=== PATIENT | female | born 1995 | race African-American/Black ===

== ENCOUNTER 2016-12-07 21:05 | Emergency (ER) | payer OTHER ==
[~2016-12-07 21:05] MED LIST: ACET50TA PO; COLA100C PO; IBUP-1114 PO; PRENTAB7 PO; VALT1TAB PO
[2016-12-07] MEDS ORDERED: BENZONATATE 100 MG CAP As Ordered ONE (23:33)
[2016-12-07] MEDS ORDERED: AZITHROMYCIN 250 MG TAB As Ordered ONE (23:33)
--- NOTE | 2016-12-07 23:41 | EDDOCDS ---
Physician Documentation [facility] Name: David De Age: 21 yrs Sex: Female : 1995 Arrival Date: 12/07/2016 Time: 21:05 Bed I2 / M2 Private MD: Jerome - Complete Info On Cds Disposition: 12/07/16 23:19 Discharged to Home/Self Care. Impression: Acute bronchitis, Acute pharyngitis. - Condition is Stable. - Discharge Instructions: Acute Bronchitis, Pharyngitis, Salt Water Gargle. - Prescriptions for Zithromax 250 mg Oral Tablet - take 1 tablet by ORAL route once daily start tomorrow; 4 tablet. benzonatate 200 mg Oral Capsule - take 1 capsule by ORAL route 3 times per day As needed; 30 capsule. - Medication Reconciliation, Local Pharmacy Hours form. - Follow up: Stephanie Garcia [facility]; When: Tomorrow; Reason: Recheck today's complaints, Continuance of care. - Problem is new. - Symptoms have improved. - Notes: USE MEDICATIONS INSTRUCTED, FOLLOW UP WITH YOUR DOCTOR TOMORROW, RETURN TO THE ER IF THE SYMPTOMS WORSEN OR BECOME CONCERNING Historical: - Allergies: Wellbutrin; - Home Meds: 1. none - PMHx: none; - PSHx: none; - Social history: Smoking status: Patient uses tobacco products, current every day smoker. No barriers to communication noted, The patient speaks fluent [place]. - Family history: Not pertinent. - : The pt / caregiver states he / she is not on anticoagulants. Home medication list is obtained from the patient. - Exposure Risk Screening:: None identified. 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 4 in. (162.56 cm) (R); Pain 4/10; 22:31 BP 126 / 86 RA Supine (auto/reg); Pulse 79; Resp 18; Temp 97.2; Pulse Ox 97% ; ajs 22:31 BP 124 / 84 RA Sitting (auto/reg); Pulse 74; ajs 22:31 BP 124 / 86 RA Standing (auto/reg); Pulse 91; ajs 21:08 Body Mass Index 19.74 (52.16 kg, 162.56 cm) gr2 MDM: 21:59 Obtain sample by nasopharyngeal swab ordered. ck7 21:59 Strep Screen, Nursing ordered. ck7 22:00 -Influenza A&B Rapid Antigen - Nose Ordered. EDMS 22:01 Chest, 2 View (pa\E\lat) Ordered. EDMS 22:02 Orthostatic VS ordered. ck7 22:41 GATS (NEGATIVE STREP SCREEN) Ordered. EDMS 22:48 -Influenza A&B Rapid Antigen - Nose Reviewed. ck7 23:14 Financial registration complete. pm4 23:20 Tessalon 200 mg PO once ordered. ck7 23:20 azithromycin 500 mg PO once ordered. ck7 23:26 [facility] Payment Agreement was scanned into [employer] and attached to record. pm4 Administered Medications: 23:37 Drug: Tessalon 200 mg Route: PO; af2 23:37 Drug: azithromycin 500 mg [azithromycin 250 mg tablet (2 tabs)] Route: PO; af2 Signatures: Dispatcher [employer] EDMS Leo Mock, RPA-C RPA-Cck7 Criselda HurtRN RN ms18 Kristen Allen RN RN af2 Pierce Taylor, Reg Reg pm4 The chart was reviewed and I authenticate all verbal orders and agree with the evaluation and treatment provided.Attachments: 23:26 [facility] Payment Agreement pm4 MTDD
--- NOTE | 2016-12-07 23:41 | EDDOCDS ---
Nurse's Notes [facility] Name: David De Age: 21 yrs Sex: Female : 1995 Arrival Date: 12/07/2016 Time: 21:05 Bed I2 / M2 Private MD: Other - Complete Info On Cds Diagnosis: Acute bronchitis;Acute pharyngitis Presentation: 12/07 21:14 Presenting complaint: Patient states: that she has a cough, sore throat that started ms18 yesterday. Adult Sepsis Screening: The patient does not have new or worsening altered mentation. Patient's respiratory rate is less than 22. Systolic blood pressure is greater than 100. Patient has a qSOFA score of 0- Negative Sepsis Screen. Suicide/Homicide risk assessment- the patient denies having any suicidal and/or homicidal ideations and does not present with any other emotional, behavioral or mental health complaints. 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 Transition of care: patient was not received from another setting of care. 21:14 Acuity: GUY Level 4 ms18 21:14 Method Of Arrival: Walkin/Carried/Asstd ms18 Triage Assessment: 21:16 General: Appears in no apparent distress, comfortable, Behavior is appropriate for age, ms18 cooperative. Pain: Location: throat Pain currently is 7 out of 10 on a pain scale. HIV screening NA for this visit Offered previously. Neurological: No deficits noted. Respiratory: Airway is patent Respiratory effort is even, unlabored. Derm: Skin is pink, warm & dry. 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 none - PMHx: none; - PSHx: none; - Social history: Smoking status: Patient uses tobacco products, current every day smoker. No barriers to communication noted, The patient speaks fluent Mongolian. - Family history: Not pertinent. - : The pt / caregiver states he / she is not on anticoagulants. Home medication list is obtained from the patient. - Exposure Risk Screening:: None identified. Screenin:39 Screening information is obtained from the patient. Fall risk: No risks identified. af2 Assistance ADL's: requires no assistance with activities of daily living. Abuse/DV Screen: The patient / caregiver reports he/she is: not in a situation that causes fear, pain or injury. Nutritional screening: No deficits noted. Advance Directives: Currently, there is no health care proxy. home support is adequate. Assessment: 22:30 General: Appears in no apparent distress, Behavior is cooperative. Neurological: No af2 deficits noted. Respiratory: Airway is patent Respiratory effort is even, unlabored. Derm: No deficits noted. 23:39 General: Appears in no apparent distress, Behavior is cooperative. Neurological: No af2 deficits noted. Respiratory: Airway is patent Respiratory effort is even, unlabored. Derm: No deficits noted. Vital Signs: 21:08 BP 129 / 91; Pulse 92; Resp 18 S; Temp 96.2(O); Pulse Ox 100% on R/A; Weight 52.16 kg gr2 (R); Height 5 ft. 4 in. (162.56 cm) (R); Pain 4/10; 22:31 BP 126 / 86 RA Supine (auto/reg); Pulse 79; Resp 18; Temp 97.2; Pulse Ox 97% ; ajs 22:31 BP 124 / 84 RA Sitting (auto/reg); Pulse 74; ajs 22:31 BP 124 / 86 RA Standing (auto/reg); Pulse 91; ajs 21:08 Body Mass Index 19.74 (52.16 kg, 162.56 cm) gr2 Vitals: 21:08 Log In Time: December 07, 2016 at 21:08. gr2 22:40 Strep Screen is obtained and tested: Negative, a GATSNEG culture is ordered in [facility] and sent. ED Course: 21:07 Patient visited by Mel Weldon. gr2 21:07 Patient moved to Waiting gr2 21:08 Other - Complete Info On Cds is Private Physician. gr2 21:10 Patient visited by Mel Weldon. gr2 21:10 Patient moved to Pre RCE gr2 21:15 Triage Initiated ms18 21:40 Patient moved to Triage 3 ms18 21:50 Leo Mock [facility]C [facility] ck7 21:50 Julio Cesar Epstein DO is Attending Physician. ck7 21:50 Patient visited by Leo Mock RPA-C. ck7 22:14 Patient moved to / [facility] 22:31 Patient visited by Leo Mock RPA-C. ck7 22:32 Patient visited by Cristina Ellis. kendall 23:07 Patient visited by Leo Mock RPA-C. ck7 23:18 Stephanie Garcia [facility] is Referral Physician. ck7 23:19 Patient name changed from David\S\\S\De\S\ to David\S\Brandee\S\De. EDMS 23:26 [facility] [place] Agreement was scanned into [employer] and attached to record. pm4 23:39 The patient / caregiver is instructed regarding the plan of care and ED course. af2 23:39 No IV's were initiated during this patient's visit. No procedures done that require af2 assistance. Administered Medications: 23:37 Drug: Tessalon 200 mg Route: PO; af2 23:37 Drug: azithromycin 500 mg [azithromycin 250 mg tablet (2 tabs)] Route: PO; af2 Order Results: Lab Order: -Influenza A&B Rapid Antigen - Nose; SPEC'M 12/07/16 22:18 Test: INFLUENZA A RAPID SCR by ICA; Value: INFLUENZA A RESULTS NEGATIVE; Status: F Test: INFLUENZA A RAPID SCR by ICA; Value: Comments:; Status: F Test: INFLUENZA B RAPID SCR by ICA; Value: INFLUENZA B RESULTS NEGATIVE; Status: F Test Note: ; The Influenza test is a direct rapid immunoassay for the qualitative detection of Influenza viral antigen. Cell culture (Viral Culture) testing should be considered to confirm NEGATIVE results and to assist in detecting other viruses that can provide similar clinical symptoms. Please contact the lab within 24 hours ([phone]) if confirmatory testing is desired. Outcome: 23:19 Discharge ordered by Provider. ck7 23:39 Discharge Assessment: Patient awake, alert and oriented x 3. No cognitive and/or af2 functional deficits noted. Patient verbalized understanding of disposition instructions. patient administered narcotics - no. The following High Risk Discharge criteria are identified: None. Discharged to home ambulatory. Condition: stable. Discharge instructions given to patient, Instructed on discharge instructions, follow up and referral plans. medication usage, Demonstrated understanding of instructions, medications, Pt was receptive of discharge instructions/ teaching. No special radiology studies were completed. Property :Personal belongings accompany Pt. 23:40 Patient left the ED. af2 Signatures: Dispatcher [employer] EDTN Cristina Ellis Christopher, RPA-C RPA-Cck7 Mel Weldon gr2 Gal Kowalski,RN RN yanab Criselda HurtRN RN ms18 Kristen AllenRN RN af2 Pierce Taylor, Reg Reg pm4 NELDAD
--- NOTE | 2016-12-08 07:55 | REP ---
Clinical: Acute cough . Comparison: 05/28/2016 . Technique: PA and lateral. Findings: The mediastinum and cardiac silhouette are normal. The lung fernandez are clear and without acute consolidation, effusion, or pneumothorax. The skeletal structures are intact and normal. Impression: 1. No acute cardiopulmonary process. Signed by Jorge Umanzor MD 12/08/2016 07:46 A
--- NOTE | 2016-12-10 00:42 | EDDOCDS ---
Physician Documentation Name: David De Age: 21 yrs Sex: Female : 1995 Arrival Date: 12/07/2016 Time: 21:05 Bed I2 / M2 Private MD: Jerome - Complete Info On Cds Disposition: 12/07/16 23:19 Discharged to Home/Self Care. Impression: Acute bronchitis, Acute pharyngitis. - Condition is Stable. - Discharge Instructions: Acute Bronchitis, Pharyngitis, Salt Water Gargle. - Prescriptions for Zithromax 250 mg Oral Tablet - take 1 tablet by ORAL route once daily start tomorrow; 4 tablet. benzonatate 200 mg Oral Capsule - take 1 capsule by ORAL route 3 times per day As needed; 30 capsule. - Medication Reconciliation, Local Pharmacy Hours form. - Follow up: Stephanie Garcia [facility]; When: Tomorrow; Reason: Recheck today's complaints, Continuance of care. - Problem is new. - Symptoms have improved. - Notes: USE MEDICATIONS INSTRUCTED, FOLLOW UP WITH YOUR DOCTOR TOMORROW, RETURN TO THE ER IF THE SYMPTOMS WORSEN OR BECOME CONCERNING Historical: - Allergies: Wellbutrin; - Home Meds: 1. none - PMHx: none; - PSHx: none; - Social history: Smoking status: Patient uses tobacco products, current every day smoker. No barriers to communication noted, The patient speaks fluent Kiswahili. - Family history: Not pertinent. - : The pt / caregiver states he / she is not on anticoagulants. Home medication list is obtained from the patient. - Exposure Risk Screening:: None identified. 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 4 in. (162.56 cm) (R); Pain 4/10; 22:31 BP 126 / 86 RA Supine (auto/reg); Pulse 79; Resp 18; Temp 97.2; Pulse Ox 97% ; ajs 22:31 BP 124 / 84 RA Sitting (auto/reg); Pulse 74; ajs 22:31 BP 124 / 86 RA Standing (auto/reg); Pulse 91; ajs 21:08 Body Mass Index 19.74 (52.16 kg, 162.56 cm) gr2 MDM: 21:59 Obtain sample by nasopharyngeal swab ordered. ck7 21:59 Strep Screen, Nursing ordered. ck7 22:00 -Influenza A&B Rapid Antigen - Nose Ordered. EDMS 22:01 Chest, 2 View (pa\E\lat) Ordered. EDMS 22:02 Orthostatic VS ordered. ck7 22:41 GATS (NEGATIVE STREP SCREEN) Ordered. EDMS 22:48 -Influenza A&B Rapid Antigen - Nose Reviewed. ck7 23:14 Financial registration complete. pm4 23:20 Tessalon 200 mg PO once ordered. ck7 23:20 azithromycin 500 mg PO once ordered. ck7 23:26 [facility] Payment Agreement was scanned into [employer] and attached to record. pm4 12/08 12:06 T-Sheet-- Draft Copy was scanned into [employer] and attached to record. gb Administered Medications: 12/07 23:37 Drug: Tessalon 200 mg Route: PO; af2 23:37 Drug: azithromycin 500 mg [azithromycin 250 mg tablet (2 tabs)] Route: PO; af2 Signatures: Dispatcher [employer] EDMS Antonina Goncalves, Reg Reg gb Leo Mock RPA-C RPA-Cck7 Criselda Hurt,RN RN ms18 Kristen AllenRN RN af2 Pierce Taylor, Reg Reg pm4 The chart was reviewed and I authenticate all verbal orders and agree with the evaluation and treatment provided.Attachments: 23:26 [facility] Payment Agreement pm4 12/08 12:06 T-Sheet-- Draft Copy gb Chart Complete MTDD
--- NOTE | 2016-12-10 00:42 | EDDOCDS ---
Physician Documentation [facility] Name: David De Age: 21 yrs Sex: Female : 1995 Arrival Date: 12/07/2016 Time: 21:05 Bed I2 / M2 Private MD: Jerome - Complete Info On Cds Disposition: 12/07/16 23:19 Discharged to Home/Self Care. Impression: Acute bronchitis, Acute pharyngitis. - Condition is Stable. - Discharge Instructions: Acute Bronchitis, Pharyngitis, Salt Water Gargle. - Prescriptions for Zithromax 250 mg Oral Tablet - take 1 tablet by ORAL route once daily start tomorrow; 4 tablet. benzonatate 200 mg Oral Capsule - take 1 capsule by ORAL route 3 times per day As needed; 30 capsule. - Medication Reconciliation, Local Pharmacy Hours form. - Follow up: Stephanie Garcia [facility]; When: Tomorrow; Reason: Recheck today's complaints, Continuance of care. - Problem is new. - Symptoms have improved. - Notes: USE MEDICATIONS INSTRUCTED, FOLLOW UP WITH YOUR DOCTOR TOMORROW, RETURN TO THE ER IF THE SYMPTOMS WORSEN OR BECOME CONCERNING Historical: - Allergies: Wellbutrin; - Home Meds: 1. none - PMHx: none; - PSHx: none; - Social history: Smoking status: Patient uses tobacco products, current every day smoker. No barriers to communication noted, The patient speaks fluent Vietnamese. - Family history: Not pertinent. - : The pt / caregiver states he / she is not on anticoagulants. Home medication list is obtained from the patient. - Exposure Risk Screening:: None identified. 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 4 in. (162.56 cm) (R); Pain 4/10; 22:31 BP 126 / 86 RA Supine (auto/reg); Pulse 79; Resp 18; Temp 97.2; Pulse Ox 97% ; ajs 22:31 BP 124 / 84 RA Sitting (auto/reg); Pulse 74; ajs 22:31 BP 124 / 86 RA Standing (auto/reg); Pulse 91; ajs 21:08 Body Mass Index 19.74 (52.16 kg, 162.56 cm) gr2 MDM: 21:59 Obtain sample by nasopharyngeal swab ordered. ck7 21:59 Strep Screen, Nursing ordered. ck7 22:00 -Influenza A&B Rapid Antigen - Nose Ordered. EDMS 22:01 Chest, 2 View (pa\E\lat) Ordered. EDMS 22:02 Orthostatic VS ordered. ck7 22:41 GATS (NEGATIVE STREP SCREEN) Ordered. EDMS 22:48 -Influenza A&B Rapid Antigen - Nose Reviewed. ck7 23:14 Financial registration complete. pm4 23:20 Tessalon 200 mg PO once ordered. ck7 23:20 azithromycin 500 mg PO once ordered. ck7 23:26 [facility] Payment Agreement was scanned into [employer] and attached to record. pm4 12/08 12:06 T-Sheet-- Draft Copy was scanned into [employer] and attached to record. gb Administered Medications: 12/07 23:37 Drug: Tessalon 200 mg Route: PO; af2 23:37 Drug: azithromycin 500 mg [azithromycin 250 mg tablet (2 tabs)] Route: PO; af2 Signatures: Dispatcher [employer] EDMS Antonina Goncalves, Reg Reg gb Leo Mock RPA-C RPA-Cck7 Criselda Hurt,RN RN ms18 Kristen AllenRN RN af2 Pierce Taylor, Reg Reg pm4 The chart was reviewed and I authenticate all verbal orders and agree with the evaluation and treatment provided.Attachments: 23:26 [facility] Payment Agreement pm4 12/08 12:06 T-Sheet-- Draft Copy gb Chart Complete MTDD
--- NOTE | 2016-12-10 00:42 | EDDOCDS ---
Nurse's Notes [facility] Name: David De Age: 21 yrs Sex: Female : 1995 Arrival Date: 12/07/2016 Time: 21:05 Bed I2 / M2 Private MD: Other - Complete Info On Cds Diagnosis: Acute bronchitis;Acute pharyngitis Presentation: 12/07 21:14 Presenting complaint: Patient states: that she has a cough, sore throat that started ms18 yesterday. Adult Sepsis Screening: The patient does not have new or worsening altered mentation. Patient's respiratory rate is less than 22. Systolic blood pressure is greater than 100. Patient has a qSOFA score of 0- Negative Sepsis Screen. Suicide/Homicide risk assessment- the patient denies having any suicidal and/or homicidal ideations and does not present with any other emotional, behavioral or mental health complaints. 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 Transition of care: patient was not received from another setting of care. 21:14 Acuity: GUY Level 4 ms18 21:14 Method Of Arrival: Walkin/Carried/Asstd ms18 Triage Assessment: 21:16 General: Appears in no apparent distress, comfortable, Behavior is appropriate for age, ms18 cooperative. Pain: Location: throat Pain currently is 7 out of 10 on a pain scale. HIV screening NA for this visit Offered previously. Neurological: No deficits noted. Respiratory: Airway is patent Respiratory effort is even, unlabored. Derm: Skin is pink, warm & dry. 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 none - PMHx: none; - PSHx: none; - Social history: Smoking status: Patient uses tobacco products, current every day smoker. No barriers to communication noted, The patient speaks fluent Spanish. - Family history: Not pertinent. - : The pt / caregiver states he / she is not on anticoagulants. Home medication list is obtained from the patient. - Exposure Risk Screening:: None identified. Screenin:39 Screening information is obtained from the patient. Fall risk: No risks identified. af2 Assistance ADL's: requires no assistance with activities of daily living. Abuse/DV Screen: The patient / caregiver reports he/she is: not in a situation that causes fear, pain or injury. Nutritional screening: No deficits noted. Advance Directives: Currently, there is no health care proxy. home support is adequate. Assessment: 22:30 General: Appears in no apparent distress, Behavior is cooperative. Neurological: No af2 deficits noted. Respiratory: Airway is patent Respiratory effort is even, unlabored. Derm: No deficits noted. 23:39 General: Appears in no apparent distress, Behavior is cooperative. Neurological: No af2 deficits noted. Respiratory: Airway is patent Respiratory effort is even, unlabored. Derm: No deficits noted. Vital Signs: 21:08 BP 129 / 91; Pulse 92; Resp 18 S; Temp 96.2(O); Pulse Ox 100% on R/A; Weight 52.16 kg gr2 (R); Height 5 ft. 4 in. (162.56 cm) (R); Pain 4/10; 22:31 BP 126 / 86 RA Supine (auto/reg); Pulse 79; Resp 18; Temp 97.2; Pulse Ox 97% ; ajs 22:31 BP 124 / 84 RA Sitting (auto/reg); Pulse 74; ajs 22:31 BP 124 / 86 RA Standing (auto/reg); Pulse 91; ajs 21:08 Body Mass Index 19.74 (52.16 kg, 162.56 cm) gr2 Vitals: 21:08 Log In Time: December 07, 2016 at 21:08. gr2 22:40 Strep Screen is obtained and tested: Negative, a GATSNEG culture is ordered in [facility] and sent. ED Course: 21:07 Patient visited by Mel Weldon. gr2 21:07 Patient moved to Waiting gr2 21:08 Other - Complete Info On Cds is Private Physician. gr2 21:10 Patient visited by Mel Weldon. gr2 21:10 Patient moved to Pre RCE gr2 21:15 Triage Initiated ms18 21:40 Patient moved to Triage 3 ms18 21:50 [facility] ck[facility] 21:50 Julio Cesar Epstein DO is Attending Physician. ck7 21:50 Patient visited by Leo Mock RPA-C. ck7 22:14 Patient moved to / [facility] 22:31 Patient visited by Leo Mock RPA-C. ck7 22:32 Patient visited by Cristina Ellis. ajs 23:07 Patient visited by Leo Mock RPA-C. ck7 23:18 Stephanie Garcia [facility] is Referral Physician. ck7 23:19 Patient name changed from David\S\\S\De\S\ to David\S\Brandee\S\De. EDMS 23:26 [facility] Payment Agreement was scanned into [employer] and attached to record. pm4 23:39 The patient / caregiver is instructed regarding the plan of care and ED course. af2 23:39 No IV's were initiated during this patient's visit. No procedures done that require af2 assistance. 12/08 07:56 Chest, 2 View (pa\E\lat) Returned. EDMS 12:06 T-Sheet-- Draft Copy was scanned into [employer] and attached to record. gb Administered Medications: 12/07 23:37 Drug: Tessalon 200 mg Route: PO; af2 23:37 Drug: azithromycin 500 mg [azithromycin 250 mg tablet (2 tabs)] Route: PO; af2 Order Results: Lab Order: -Influenza A&B Rapid Antigen - Nose; SPEC'M 12/07/16 22:18 Test: INFLUENZA A RAPID SCR by ICA; Value: INFLUENZA A RESULTS NEGATIVE; Status: F Test: INFLUENZA A RAPID SCR by ICA; Value: Comments:; Status: F Test: INFLUENZA B RAPID SCR by ICA; Value: INFLUENZA B RESULTS NEGATIVE; Status: F Test Note: ; The Influenza test is a direct rapid immunoassay for the qualitative detection of Influenza viral antigen. Cell culture (Viral Culture) testing should be considered to confirm NEGATIVE results and to assist in detecting other viruses that can provide similar clinical symptoms. Please contact the lab within 24 hours ([phone]) if confirmatory testing is desired. Lab Order: GATS (NEGATIVE STREP SCREEN); SPEC'M 12/07/16 22:18 Test: GATS CULTURE (NEG STREP SCR); Value: GATS RESULT NEGATIVE FOR STREP PYOGENES (GROUP A); Status: F Test: GATS CULTURE (NEG STREP SCR); Value: <EXTERNAL COMMENT eCWMed> FULL REPORT IN LAB NOTES (eCW and Medent).; Status: F Radiology Order: Chest, 2 View (pa\E\lat) Test: Chest, 2 View (pa\E\lat) REASON FOR EXAMINATION: Cough; Clinical: Acute cough .; ; Comparison: 05/28/2016 .; ; Technique: PA and lateral.; ; Findings:; The mediastinum and cardiac silhouette are normal. The lung fernandez are clear and; without acute consolidation, effusion, or pneumothorax. The skeletal structures; are intact and normal.; ; Impression:; 1. No acute cardiopulmonary process.; ; ; Signed by; Jorge Umanzor MD 12/08/2016 07:46 A; Outcome: 23:19 Discharge ordered by Provider. ck7 23:39 Discharge Assessment: Patient awake, alert and oriented x 3. No cognitive and/or af2 functional deficits noted. Patient verbalized understanding of disposition instructions. patient administered narcotics - no. The following High Risk Discharge criteria are identified: None. Discharged to home ambulatory. Condition: stable. Discharge instructions given to patient, Instructed on discharge instructions, follow up and referral plans. medication usage, Demonstrated understanding of instructions, medications, Pt was receptive of discharge instructions/ teaching. No special radiology studies were completed. Property :Personal belongings accompany Pt. 23:40 Patient left the ED. af2 Signatures: Dispatcher [employer] EDMS Antonina Goncalves, Reg Reg gb Caleb, Leo Gunderson, RPA-C RPA-Cck7 Mel Weldon gr2 Gal Kowalski,RN Criselda Nelson RN RN ms18 Kristen AllenRN RN af2 Pirece Taylor, Reg Reg pm4 Chart Complete MTDD
== END 2016-12-07 23:40 | disposition home or self-care (01) ==
LOC: M ED 21:05
DX: J20.9 Acute bronchitis, unspecified (principal); J02.9 Acute pharyngitis, unspecified; Z72.0 Tobacco use; Z88.8 Allergy status to other drugs, medicaments and biological substances

== ENCOUNTER 2016-12-22 23:18 | Emergency (ER) | payer OTHER ==
[~2016-12-22] VITALS: Ht 162.6 cm; Wt 51.3 kg
[2016-12-23] MEDS ORDERED: KETOROLAC 30 MG/ML VIAL (J1885) IV ONE (04:45)
[2016-12-23] MEDS ORDERED: diphenhydrAMINE INJ 50MG/ML VIAL (J1200) IV ONE (04:45)
[2016-12-23] MEDS ORDERED: METOCLOPRAMIDE INJ 10MG/2ML VIAL (J2765) IV ONE (04:45)
[2016-12-23] MEDS ORDERED: NS 1,000 ML IV ONE (04:45)
[2016-12-23 07:24] VITALS: BP 114/72
== END 2016-12-23 07:27 | disposition home or self-care (01) ==
LOC: M ED 12-23 00:41
DX: G43.909 Migraine, unspecified, not intractable, without status migrainosus (principal); Z88.8 Allergy status to other drugs, medicaments and biological substances; Z79.899 Other long term (current) drug therapy
CPT/HCPCS: 96361; 96374; 96375; 99282; J1200; J1885; J2765

== ENCOUNTER 2017-01-19 01:23 | Emergency (ER) | payer OTHER ==
[~2017-01-19] VITALS: Ht 162.6 cm; Wt 49.9 kg
[2017-01-19] MEDS ORDERED: PERCOCET 5MG/325MG TAB PO ONE ×2 (07:15→07:30)
[2017-01-19] MEDS ORDERED: ONDANSETRON 4 MG ORAL DISINTEGRATING TAB (S0181) PO ONE (07:15)
[2017-01-19 08:28] LABS: CONTROL LINE HCG INT CTR LINE PRESENT
--- NOTE | 2017-01-19 09:07 | REP ---
Clinical: Pelvic pain. IUD placement. Technique: Transabdominal pelvic ultrasound followed by transvaginal examination for better evaluation of the endometrium and adnexa with color Doppler evaluation of the ovaries. Findings: Bladder is unremarkable and measures 4.9 x 3.1 x 2.4 cm. Normal anteverted uterus measures 8.5 x 3.7 x 5.5 cm. The endometrial complex measures 2 mm thickness. No discrete uterine or endometrial abnormalities are appreciated. IUD identified within the endometrial canal extending to the fundus Bilateral ovaries are normal in appearance and vascularity without evidence for torsion. Right ovary measures 4.1 x 1.9 x 2.7 cm ; R I = 0.45 . Left ovary measures 3.3 x 2.1 x 2.7 cm ; R I = 0.57 . No free fluid or adnexal mass lesions. Impression: 1. Normal pelvic ultrasound. 2. IUD in satisfactory position. 3. Normal ovaries without torsion. Signed by Jorge Umanzor MD 01/19/2017 08:58 A
[2017-01-19] MEDS ORDERED: FLAG500T PO (09:13)
[2017-01-19] MEDS ORDERED: metroNIDAZOLE (FLAGYL) 500 MG TAB PO ONE (09:15)
[2017-01-19 09:19] VITALS: BP 135/80
== END 2017-01-19 09:31 | disposition home or self-care (01) ==
LOC: M ED 02:58
DX: N76.0 Acute vaginitis (principal)

== ENCOUNTER 2017-02-07 23:20 | Emergency (ER) | payer OTHER ==
[~2017-02-07] VITALS: Ht 162.6 cm; Wt 49.9 kg
[~2017-02-07 23:20] MED LIST changes: -COLA100C PO; +COLA100C3 PO; +FLAG500T PO
[2017-02-08 01:38] VITALS: BP 116/73
[2017-02-08] MEDS ORDERED: ONDANSETRON 4 MG ORAL DISINTEGRATING TAB (S0181) PO ONE (01:45)
[2017-02-08] MEDS ORDERED: KETOROLAC 60 MG/2 ML VIAL (J1885) IM ONE (01:45)
== END 2017-02-08 02:05 | disposition home or self-care (01) ==
LOC: M ED 02-08 00:10
DX: F43.0 Acute stress reaction (principal); G43.909 Migraine, unspecified, not intractable, without status migrainosus; F33.9 Major depressive disorder, recurrent, unspecified; Z88.8 Allergy status to other drugs, medicaments and biological substances
CPT/HCPCS: 96372; 99284; J1885

== ENCOUNTER → 2017-02-20 | Outpatient (REF) | payer OTHER ==
[~2017-02-20] MED LIST changes: +AUGM875T27 PO; +FLUC150T; +REGL10TA6 PO; +VIST50CA PO
== END ==
LOC: M SFHCLERA 17:30
PROVIDERS: ATTEND Nurse Practitioner Family
DX: N89.8 Other specified noninflammatory disorders of vagina (principal)

== ENCOUNTER 2017-02-21 10:56 | Emergency (ER) | payer OTHER ==
[~2017-02-21] VITALS: Ht 162.6 cm; Wt 50.8 kg
[~2017-02-21 10:56] MED LIST changes: -AUGM875T27 PO; -FLUC150T; -REGL10TA6 PO; -VIST50CA PO
[2017-02-21] MEDS ORDERED: FLUC150T (11:06)
[2017-02-21] MEDS ORDERED: AUGM875T27 PO (11:35)
[2017-02-21] MEDS ORDERED: REGL10TA6 PO (11:35)
[2017-02-21] MEDS ORDERED: VIST50CA PO (11:35)
[2017-02-21] MEDS ORDERED: KETOROLAC 30 MG/ML VIAL (J1885) IV ONE (11:45)
[2017-02-21] MEDS ORDERED: AUGMENTIN 875 MG TAB PO ONE (11:45)
[2017-02-21] MEDS ORDERED: hydrOXYzine 25 MG TAB PO ONE (11:45)
[2017-02-21] MEDS ORDERED: METOCLOPRAMIDE INJ 10MG/2ML VIAL (J2765) IV ONE (11:45)
[2017-02-21 12:40] VITALS: BP 116/75
== END 2017-02-21 12:52 | disposition home or self-care (01) ==
LOC: M ED 11:48
DX: J01.90 Acute sinusitis, unspecified (principal); F41.9 Anxiety disorder, unspecified; B00.9 Herpesviral infection, unspecified; Z79.899 Other long term (current) drug therapy; Z88.8 Allergy status to other drugs, medicaments and biological substances; F17.210 Nicotine dependence, cigarettes, uncomplicated
CPT/HCPCS: 96374; 96375; 99282; J1885; J2765

== ENCOUNTER 2017-05-18 21:49 | Emergency (ER) | payer OTHER ==
[~2017-05-18] VITALS: Ht 162.6 cm; Wt 51.0 kg
[~2017-05-18 21:49] MED LIST changes: +AUGM875T28 PO; -COLA100C3 PO; +COLA100C5 PO; +FLUC150T; +REGL10TA6 PO; +VIST50CA PO
[2017-05-18] MEDS ORDERED: PRENTAB7 PO (21:59)
[2017-05-18] MEDS ORDERED: ACETAMINOPHEN 325 MG TAB PO ONE (23:15)
--- NOTE | 2017-05-18 23:50 | REPUSA ---
Clinical history: cramping. Findings: Real-time transabdominal ultrasound images of the pelvis were obtained. There is a single i ntrauterine gestation. The crown rump length measures 1.1 cm. heart rate measures 157 beats per minute. There is a small complex fluid collection adjacent to the gestational sac, measuring 2.4 x 0 .9 x 1.8 cm. The uterus uterus and ovaries appear grossly unremarkable. There is no evidence of free fluid. Impression: 1. Single live intrauterine measuring 7 weeks 1 day, with estimated due date of 01/03/2018. 2. Small subchorionic hemorrhage.
[2017-05-19] VITALS: BP 102/63
== END 2017-05-19 00:11 | disposition home or self-care (01) ==
LOC: M ED 21:49
DX: O26.891 Other specified pregnancy related conditions, first trimester (principal); R51 Headache; Z3A.01 Less than 8 weeks gestation of pregnancy; O99.331 Smoking (tobacco) complicating pregnancy, first trimester; F17.210 Nicotine dependence, cigarettes, uncomplicated

== ENCOUNTER 2017-06-01 11:07 | Emergency (ER) | payer OTHER ==
[~2017-06-01] VITALS: Ht 162.6 cm; Wt 50.2 kg
[2017-06-01 11:07] VITALS: BP 120/72
[2017-06-01] MEDS ORDERED: VITAMIN (11:14)
[2017-06-01] MEDS ORDERED: UNIS25TA2 (11:14)
[2017-06-01] MEDS ORDERED: KETOROLAC 30 MG/ML VIAL (J1885) IV ONE (11:45)
[2017-06-01] MEDS ORDERED: diphenhydrAMINE INJ 50MG/ML VIAL (J1200) IV ONE (11:45)
[2017-06-01] MEDS ORDERED: METOCLOPRAMIDE INJ 10MG/2ML VIAL (J2765) IV ONE (11:45)
== END 2017-06-01 12:34 | disposition home or self-care (01) ==
LOC: M ED 11:07
DX: G43.909 Migraine, unspecified, not intractable, without status migrainosus (principal); B00.9 Herpesviral infection, unspecified; F33.9 Major depressive disorder, recurrent, unspecified; F41.9 Anxiety disorder, unspecified; F17.210 Nicotine dependence, cigarettes, uncomplicated; Z88.8 Allergy status to other drugs, medicaments and biological substances
CPT/HCPCS: 96374; 96375; 99283; J1200; J2765

== ENCOUNTER 2017-07-09 23:09 | Inpatient (IN) | payer OTHER ==
[~2017-07-09] VITALS: Ht 162.6 cm; Wt 51.7 kg
[~2017-07-09 23:09] MED LIST changes: +UNIS25TA2; +VITAMIN
[2017-07-09] MEDS ORDERED: VITAMIN (23:17)
[2017-07-10 01:29] LABS: CONTROL LINE HCG INT CTR LINE PRESENT
[2017-07-10 01:30] LABS: MEAN CORPUSCULAR HEMOGLOBIN 31.1 pg (27.0-33.0); RED CELL DISTRIBUTION WIDTH 12.1 % (11.5-14.5); WHITE BLOOD COUNT 7.8 K/mm3 (4.0-10.0)
[2017-07-10 01:50] LABS: ALBUMIN 3.1 GM/DL (3.2-5.2); ALBUMIN/GLOBULIN RATIO 0.94 (1.00-1.93); ALKALINE PHOSPHATASE 45 U/L (45-117); ALT/SGPT 14 U/L (12-78); ANION GAP 7 MEQ/L (8-16); AST/SGOT 9 U/L (15-37); BILIRUBIN,DIRECT < 0.1 MG/DL (0.0-0.2); BILIRUBIN,TOTAL 0.3 MG/DL (0.2-1.0); BLOOD UREA NITROGEN 15 MG/DL (7-18); CALCIUM LEVEL 8.1 MG/DL (8.5-10.1); CARBON DIOXIDE LEVEL 24 MEQ/L (21-32); CHLORIDE LEVEL 107 MEQ/L (98-107); CREATININE FOR GFR 0.61 MG/DL (0.55-1.02); GLOMERULAR FILTRATION RATE > 60.0 (>60); GLUCOSE, FASTING 70 MG/DL (70-105); SODIUM LEVEL 138 MEQ/L (136-145); TOTAL PROTEIN 6.4 GM/DL (6.4-8.2)
[2017-07-10] MEDS ORDERED: PRENCHW PO (06:12)
[2017-07-10 06:30] LABS: METHADONE URINE NEGATIVE (NEGATIVE)
[2017-07-10 07:54] VITALS: BP 119/58
[2017-07-10] MEDS ORDERED: MOM 30ML SUSPENSION UDC PO PRN (08:45)
[2017-07-10] MEDS ORDERED: hydrOXYzine 50 MG TAB PO PRN (08:45)
[2017-07-10] MEDS ORDERED: MAALOX 30 ML SUSP *UDC PO PRN (08:45)
[2017-07-10] MEDS ORDERED: ACETAMINOPHEN TAB 650MG DOSE (2X325MG) PO PRN (08:45)
--- NOTE | 2017-07-10 09:51 | HPEPDOC ---
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 Yomi Block HPI: 22yoF admitted to [facility] for unspecified depressive disorder, being medically examined today. The patient is currently 15 weeks . Remains on vitamin. Follows with Stephanie Garcia HOT METAL MIXER OPERATOR. Next appointment is scheduled 07/20/17. Patient states she has been eating and drinking well. She eats several small meals throughout the day. She states she has had some abdominal cramping which began last week. She denies any bleeding or vaginal discharge. She denies any urinary complaints, no dysuria, frequency, urgency or hematuria. Denies any fevers, chills, weakness, fatigue, UMANA, CP, SOB, cough, palpitations, abdominal pain, N/V/D or changes in bowel or bladder habits. 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 ROS: As noted in HPI, otherwise 11pt ROS of systems reviewed and remarkable only for LMP 03/26/17. Currently 15 weeks . PE: GEN: 22 yo F, appears stated age. Well-nourished, well developed. No acute distress. Alert and oriented x 3. Avoids eye contact, short 1-2 word answers. HEENT: Normocephalic, atraumatic. Pupils are equal, round, and reactive to light. Extraocular movements are intact. No nystagmus appreciated. Sclera are nonicteric. Conjunctiva without injection. Nose midline. Nasal turbinates without bogginess. EACs both patent BL. TMs both visualized and galicia with good cone of light, no bulging or erythema. No facial asymmetry. Moist mucous membranes. Dentition fair. Pharynx pink and moist, no cobblestoning. Neck supple , trachea midline. No lymphadenopathy or thyromegaly appreciated. CHEST: Regular rate and rhythm, +S1, +S2 LUNGS: Clear to auscultation bilaterally. No wheezes, rales, or rhonchi. Breathing appears symmetric and easy. Patient is speaking in full sentences. No accessory muscle use. ABD: Round, soft, mild diffuse tenderness with palpation across mid and upper abdomen, no suprapubic tenderness, non-distended. +Bowel sounds throughout. No rebound or guarding. No costovertebral angle tenderness. EXT: Pulses 2+ bilaterally dorsalis pedis and radial. No lower extremity edema appreciated. SKIN: Spangle, dry, warm. Capillary refill <2sec. No rashes. NEURO: Alert and oriented x 3. Cranial nerves III-XII are intact. No focal deficits appreciated. EKG: Pending OB U/S 05/18/17 1. Single live intrauterine measuring 7 weeks 1 day, with estimated due date of 01/03/2018. 2. Small subchorionic hemorrhage. A&P: 22yoF admitted to [facility] for unspecified depressive disorder 1. Psych. Plan per Psychiatry. Obtain baseline EKG to assure the safety of psychiatric medications as they can prolong the QT interval. 2. Nicotine dependence. Patch available. 3. . Continue outpatient follow-up with Stephanie Garcia HOT METAL MIXER OPERATOR, next appointment scheduled 07/20/17. Continue vitamin. Update OB ultrasound as the patient is reporting some abdominal cramping. Check UA/urine culture. 4. Follow up with PCP on discharge. 5. History of migraine headache. Continue Tylenol 650 mg every 6 hours as needed. Staff member Erin present throughout exam. Vital Signs Vital Signs Date Time Temp Pulse Resp B/P (MAP) Pulse Ox O2 Delivery O2 Flow Rate FiO2 07/10/17 07:54 98.6 89 20 119/58 (78) Room Air 07/10/17 07:39 99 Laboratory Data Labs 24H Laboratory Tests 2 07/10/17 01:01: Anion Gap 7L, Glomerular Filtration Rate > 60.0, Calcium Level 8.1L, Aspartate Amino Transf (AST/SGOT) 9L, Alanine Aminotransferase (ALT/SGPT) 14, Alkaline Phosphatase 45, Total Bilirubin 0.3, Direct Bilirubin < 0.1, Total Protein 6.4, Albumin 3.1L, Albumin/Globulin Ratio 0.94L, Thyroid Stimulating Hormone (TSH) 0.937, Human Chorionic Gonadotropin, Qual POSITIVEA, Salicylates Level < 1.7L, Acetaminophen Level < 2.0L, Ethyl Alcohol Level < 0.003 07/10/17 05:58: Urine Amphetamines Screen NEGATIVE, Urine Benzodiazepines Screen NEGATIVE, Urine Opiates Screen NEGATIVE, Urine Methadone Screen NEGATIVE, Urine Barbiturates Screen NEGATIVE, Urine Phencyclidine Screen NEGATIVE, Urine Cocaine Metabolite Screen NEGATIVE, Urine Cannabinoids Screen NEGATIVE CBC/BMP Laboratory Tests 07/10/17 01:01 Red Blood Count 3.41 L, Mean Corpuscular Volume 89.0, Mean Corpuscular Hemoglobin 31.1, Mean Corpuscular Hemoglobin Concent 35.0, Red Cell Distribution Width 12.1 Home Medications Scheduled Multivitamins/ ( 19) 1 Chw Chw, 1 CHW PO DAILY Allergies Coded Allergies: Bupropion (Verified Allergy, Intermediate, SWELLING AND HIVES, 05/28/16) Gayatri Dubose Jul 10, 2017 09:51
--- NOTE | 2017-07-10 14:24 | REP ---
Obstetric ultrasound for anatomy: There is a single intrauterine gestation in a breech presentation. There is movement and cardiac activity, the heart rate is 161 beats per minute. The placenta is posterior without previa or abruptio with grade zero maturity. The amniotic fluid volume subjectively is normal. The cervix measures 4.0 cm length. Maternal adnexa and cul-de-sac are unremarkable. By the ultrasound today gestational age is 15 weeks 1 day. The LORNA is 08/25, 09/11/2018. Gestational age by LMP is 15 weeks 1 day. weight is 117 grams (0 pounds, 4 ounces). This is the 45th percentile for 15 weeks 1 day. Because of early gestational age the anatomic survey is not performed. Consider anatomic survey and 18 - 22 weeks gestational age. Signed by Connor Ramirez MD 07/10/2017 02:16 P
[2017-07-10 18:00] VITALS: BP 107/61
--- NOTE | 2017-07-10 21:46 | ECGEPIP ---
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
[2017-07-11 06:00] VITALS: BP 96/55
[2017-07-11 08:04] LABS: MEAN CORPUSCULAR HEMOGLOBIN 31.6 pg (27.0-33.0); MEAN CORPUSCULAR HGB CONC 35.3 g/dl (32.0-36.5); MEAN CORPUSCULAR VOLUME 89.4 fl (80.0-96.0); RED CELL DISTRIBUTION WIDTH 12.3 % (11.5-14.5); WHITE BLOOD COUNT 6.6 K/mm3 (4.0-10.0)
[2017-07-11 08:24] LABS: ALBUMIN 2.9 GM/DL (3.2-5.2); ALBUMIN/GLOBULIN RATIO 0.91 (1.00-1.93); ALKALINE PHOSPHATASE 42 U/L (45-117); ALT/SGPT 14 U/L (12-78); ANION GAP 6 MEQ/L (8-16); AST/SGOT 9 U/L (15-37); BILIRUBIN,TOTAL 0.3 MG/DL (0.2-1.0); BLOOD UREA NITROGEN 8 MG/DL (7-18); CALCIUM LEVEL 7.6 MG/DL (8.5-10.1); CARBON DIOXIDE LEVEL 27 MEQ/L (21-32); CHLORIDE LEVEL 108 MEQ/L (98-107); CREATININE FOR GFR 0.58 MG/DL (0.55-1.02); GLOMERULAR FILTRATION RATE > 60.0 (>60); GLUCOSE, FASTING 77 MG/DL (70-105); POTASSIUM SERUM 3.8 MEQ/L (3.5-5.1); SODIUM LEVEL 141 MEQ/L (136-145); TOTAL PROTEIN 6.1 GM/DL (6.4-8.2)
[2017-07-11] MEDS: PRENATAL VITAMINS CHEWABLE TABLET PO SCH (11:41)
[2017-07-11 18:00] VITALS: BP 90/54
--- NOTE | 2017-07-11 19:56 | MHIPNPDOC ---
[facility] Progress Note Progress Note DATE OF SERVICE: 07/11/17 HISTORY: Patient presented with escort after revealing to her roommate that she has been severely depressed & no longer wanted to live. During [facility] she reported the same hx. She describes having numerous life stressors, including a difficult relationship with her estranged , as well as impending divorce proceedings from him. VITAL SIGNS: See below. NEW TEST RESULTS: N/A CURRENT MEDICATIONS: See below. MENTAL STATUS EXAMINATION: General appearance: Patient is a 22-year old female, who is alert, cooperative, dressed in hospital clothes with good eye contact. Speech: Coherent, goal directed Thought processes: Intact. Thought content: Focused on her discharge and her financial stressors. Abstract reasoning and computation: Good Description of associations: Not loose. Description of abnormal or psychotic thoughts: Denies thought delusions, denies SI/HI, denies A/V hallucinations. Judgment: Poor. Insight: Fair Orientation: Oriented x 3. Recent and remote memory: Intact. Attention span and concentration: Fair. Fund of knowledge: Fair. Mood: "I'm not suicidal, I'm stressed out" Affect: Anxious DIAGNOSES: 1. Major Depressive Disorder, recurrent, severe 2. R/O Bipolar Disorder 3. ADHD by history 4. R/O PTSD ASSESSMENT:Patient is depressed and she wants to be discharged because she hasn' t seen her one year old daughter and she says she is not suicidal. She says she said she was suicidal because she is very stressed out, she has had all sort of problems with her ex , has financial problems, has no family support, poor social support, is impulsive and her higher ups think she overspends in unnecessary things. According to her she doesn't spend in unnecessary things. She says she got a dog because she thought it was therapeutic for her and it was not her who bought but her did it. The thinks she spent $ 1600 in a dog, that she bought her a car even when he didn't have a street flusher driver's license but she says she bought it but it was because her wanted it and he had promised to pay fro it but since he left, he hasn't made any payments. This engineering technical writer explained to her she could benefit from taking Latuda , a medication that is category B that is indicated for bipolar depression and is safe to use in . Discussed with her the risks and benefits of this medication and she said she understood them, is willing to take it but the minimum dose because she is concerned about the possible effects it could have on her baby. She said she would take it, so that she can be discharged and go back home. She says she doesn't want to have problems with her higher ups, and she will take the medications to avoid those problems but she's not sure that she will continue taking them later on. She says she will go for her therapy appointments at [facility]. MANAGEMENT PLAN: patient was started this afternoon on Latuda 20 mgs. PO QD. Will plan discharge for if she has a good response to medications. TIME SPENT: 45 minutes. Vital Signs Vital Signs Date Time Temp Pulse Resp B/P (MAP) Pulse Ox O2 Delivery O2 Flow Rate FiO2 07/11/17 18:00 99.6 60 22 90/54 (66) 07/10/17 07:54 Room Air 07/10/17 07:39 99 Laboratory Data 24H Labs Laboratory Tests 2 07/11/17 07:37: Anion Gap 6L, Glomerular Filtration Rate > 60.0, Blood Urea Nitrogen 8, Creatinine 0.58, Sodium Level 141, Potassium Level 3.8, Chloride Level 108H, Carbon Dioxide Level 27, Calcium Level 7.6L, Aspartate Amino Transf (AST/SGOT) 9L, Alanine Aminotransferase (ALT/SGPT) 14, Alkaline Phosphatase 42L, Total Bilirubin 0.3, Total Protein 6.1L, Albumin 2.9L, Albumin/Globulin Ratio 0.91L CBC/BMP Laboratory Tests 07/11/17 07:37 Red Blood Count 3.45 L, Mean Corpuscular Volume 89.4, Mean Corpuscular Hemoglobin 31.6, Mean Corpuscular Hemoglobin Concent 35.3, Red Cell Distribution Width 12.3, Calcium Level 7.6 L, Aspartate Amino Transf (AST/SGOT) 9 L, Alanine Aminotransferase (ALT/SGPT) 14, Alkaline Phosphatase 42 L, Total Bilirubin 0.3, Total Protein 6.1 L, Albumin 2.9 L Current Medications Current Medications Acetaminophen (Tylenol Tab) 650 mg Q6HP PRN PO HEADACHE or DISCOMFORT Last administered on 07/10/17t 21:02; Start 07/10/17 at 08:45; Stop 08/09/17 at 08: 44 Al Hydrox/Mg Hydrox/Simethicone (Mylanta) 30 ml Q4HP PRN PO HEARTBURN/ INDIGESTION; Start 07/10/17 at 08:45; Stop 08/09/17 at 08:44 Home Med (Med Rec Complete!) ASDIRECTED XX ; Start 07/10/17 at 06:15; Stop at 06:15; Status DC Hydroxyzine HCl (Atarax) 50 mg Q6HP PRN PO ANXIETY/AGITATION; Start 07/10/17 at 08:45; Stop 08/09/17 at 08:44 Lurasidone HCl (Latuda) 20 mg DAILY PO ; Start 07/12/17 at 09:00; Stop at 08:59 Magnesium Hydroxide (Milk Of Magnesia) 30 ml DAILYPRN PRN PO CONSTIPATION; Start 07/10/17 at 08:45; Stop 08/09/17 at 08:44 Prenat Multivit/ Floor Cleaner/Iron/Folic Ac ( Vitamins) 1 tab DAILY PO Last administered on 07/11/17t 11:41; Start 07/11/17 at 09:00; Stop 08/10/17 at 08: 59 Allergies Coded Allergies: Bupropion (Verified Allergy, Intermediate, SWELLING AND HIVES, 05/28/16) LESVIA REDDING MD Jul 11, 2017 19:56
[2017-07-12 06:59] VITALS: BP 100/58
[2017-07-12] MEDS: PRENATAL VITAMINS CHEWABLE TABLET PO SCH (08:58)
[2017-07-12] MEDS: LURASIDONE 20 MG TAB (LATUDA) PO SCH (08:58)
[2017-07-12 18:25] VITALS: BP 100/55
--- NOTE | 2017-07-12 21:23 | MHIPNPDOC ---
[facility] Progress Note Progress Note DATE OF SERVICE: 07/12/17 HISTORY: Patient presented with escort after revealing to her roommate that she has been severely depressed & no longer wanted to live. During M[facility] she reported the same hx. She describes having numerous life stressors, including a difficult relationship with her estranged , as well as impending divorce proceedings from him. VITAL SIGNS: See below. NEW TEST RESULTS: N/A CURRENT MEDICATIONS: See below. MENTAL STATUS EXAMINATION: General appearance: Patient is a 22-year old female, uncooperative, dressed in hospital clothes, with fair eye contact Speech: Coherent, goal directed Thought processes: Intact. Thought content: Focused on being discharged, not willing to take medications for fear of damaging her baby. Abstract reasoning and computation: Fair Description of associations: Good Description of abnormal or psychotic thoughts: Denies thought delusions, denies SI/HI, denies A/V hallucinations. Judgment: Poor. Insight: Limited Orientation: Oriented x 3. Recent and remote memory: Intact. Attention span and concentration: Fair. Fund of knowledge: Fair. Mood: "I"m getting depressed because I'm here" Affect: Anxious DIAGNOSES: 1. Major Depressive Disorder, recurrent, severe 2. R/O Bipolar Disorder 3. ADHD by history 4. R/O PTSD ASSESSMENT:Patient said yesterday she was going to take Latuda, this health science writer explained to her after I explained the risks and benefits of Latuda, that she didn't have to if she was not willing to do it, because she is concerned about the safety of her child. Explained if she didn't want medications, she would need to learn coping skills, but she said she became very anxious during the night, because she feared taking the medications because she's not sure if she would hurt her child. This morning she became very agitated and expressed her anger and frustration. Said she wanted to be discharged, said she would go to Behavioral health and consult her stage builder for the proper treatment. This health science writer explained to her that her GAYATHRI complained about her being extremely impulsive and needing to have her sitting 15 feet away from him because needs to watch her continuously and that was the reason it would have been convenient for her to take her medications but she was told too, she can take these meds when her baby is born, but it is important for her to recognize she needs treatment. TIME SPENT: 30 minutes. Vital Signs Vital Signs Date Time Temp Pulse Resp B/P (MAP) Pulse Ox O2 Delivery O2 Flow Rate FiO2 07/12/17 18:25 98.0 82 16 100/55 (70) 07/10/17 07:54 Room Air 07/10/17 07:39 99 Current Medications Current Medications Acetaminophen (Tylenol Tab) 650 mg Q6HP PRN PO HEADACHE or DISCOMFORT Last administered on 07/10/17 21:02; Start 07/10/17 at 08:45; Stop 08/09/17 at 08: 44 Al Hydrox/Mg Hydrox/Simethicone (Mylanta) 30 ml Q4HP PRN PO HEARTBURN/ INDIGESTION; Start 07/10/17 at 08:45; Stop 08/09/17 at 08:44 Home Med (Med Rec Complete!) ASDIRECTED XX ; Start 07/10/17 at 06:15; Stop at 06:15; Status DC Hydroxyzine HCl (Atarax) 50 mg Q6HP PRN PO ANXIETY/AGITATION Last administered on 07/12/17 21:07; Start 07/10/17 at 08:45; Stop 08/09/17 at 08:44 Lurasidone HCl (Latuda) 20 mg DAILY PO ; Start 07/12/17 at 09:00; Stop at 08:59 Magnesium Hydroxide (Milk Of Magnesia) 30 ml DAILYPRN PRN PO CONSTIPATION; Start 07/10/17 at 08:45; Stop 08/09/17 at 08:44 Prenat Multivit/ [place]/Iron/Folic Ac ( Vitamins) 1 tab DAILY PO Last administered on 07/12/17 08:58; Start 07/11/17 at 09:00; Stop 08/10/17 at 08: 59 Allergies Coded Allergies: Bupropion (Verified Allergy, Intermediate, SWELLING AND HIVES, 05/28/16) LESVIA REDDING MD Jul 12, 2017 21:23
[2017-07-13 07:03] VITALS: BP 85/50
[2017-07-13] MEDS: LURASIDONE 20 MG TAB (LATUDA) PO SCH (09:00)
[2017-07-13] MEDS ORDERED: HYDRO50TAB PO (09:39)
[2017-07-13] MEDS: PRENATAL VITAMINS CHEWABLE TABLET PO SCH (09:52)
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
== END 2017-07-13 13:50 | disposition home or self-care (01) | DRG 781 ==
LOC: M ED 23:09 → M ED INP 07-10 06:45 → M PSY 07-10 07:50
PROVIDERS: ADMIT Psychiatry & Neurology Psychiatry; ATTEND Psychiatry & Neurology Psychiatry
DX: O99.342 Other mental disorders complicating pregnancy, second trimester (principal); F31.81 Bipolar II disorder; F90.9 Attention-deficit hyperactivity disorder, unspecified type; F43.10 Post-traumatic stress disorder, unspecified; F43.23 Adjustment disorder with mixed anxiety and depressed mood; Z88.8 Allergy status to other drugs, medicaments and biological substances; F17.200 Nicotine dependence, unspecified, uncomplicated; Z3A.15 15 weeks gestation of pregnancy

== ENCOUNTER 2017-07-22 21:52 | Emergency (ER) | payer OTHER ==
[~2017-07-22] VITALS: Ht 162.6 cm; Wt 51.8 kg
[~2017-07-22 21:52] MED LIST changes: +HYDRO50TAB PO; +PRENCHW PO
[2017-07-22 21:56] VITALS: BP 121/78
[2017-07-23] MEDS ORDERED: KEFL500C17 PO (00:30)
[2017-07-23] MEDS ORDERED: CEPHALEXIN 500 MG CAP PO ONE (00:45)
== END 2017-07-23 00:54 | disposition home or self-care (01) ==
LOC: M ED 21:52
DX: S91.134A Puncture wound without foreign body of right lesser toe(s) without damage to nail, initial encounter (principal); W22.8XXA Striking against or struck by other objects, initial encounter; Y92.89 Other specified places as the place of occurrence of the external cause; Y93.89 Activity, other specified; Y99.8 Other external cause status; F41.9 Anxiety disorder, unspecified; Z88.8 Allergy status to other drugs, medicaments and biological substances; F17.210 Nicotine dependence, cigarettes, uncomplicated

== ENCOUNTER 2017-08-20 22:01 | Emergency (ER) | payer OTHER ==
[~2017-08-20] VITALS: Ht 162.6 cm; Wt 51.8 kg
[~2017-08-20 22:01] MED LIST changes: +KEFL500C17 PO
[2017-08-20 22:02] VITALS: BP 110/67
== END 2017-08-21 | disposition home or self-care (01) ==
LOC: M ED 22:01
DX: O98.512 Other viral diseases complicating pregnancy, second trimester (principal); J06.9 Acute upper respiratory infection, unspecified; Z3A.21 21 weeks gestation of pregnancy

== ENCOUNTER 2017-09-05 14:10 | Outpatient (CLI) | payer OTHER ==
[~2017-09-05] VITALS: Ht 162.6 cm; Wt 55.7 kg
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
== END 2017-09-05 16:15 | disposition home or self-care (01) ==
LOC: M LDO 14:10
PROVIDERS: ATTEND Obstetrics & Gynecology
DX: O26.892 Other specified pregnancy related conditions, second trimester (principal); Z3A.23 23 weeks gestation of pregnancy; O99.342 Other mental disorders complicating pregnancy, second trimester; F41.9 Anxiety disorder, unspecified; F32.9 Major depressive disorder, single episode, unspecified; F43.10 Post-traumatic stress disorder, unspecified; O99.332 Smoking (tobacco) complicating pregnancy, second trimester; F17.210 Nicotine dependence, cigarettes, uncomplicated; Z88.8 Allergy status to other drugs, medicaments and biological substances

== ENCOUNTER 2017-11-06 21:54 | Outpatient (CLI) | payer OTHER ==
[2017-11-06 22:47] LABS: APPEARANCE, URINE CLEAR (CLEAR); BACTERIA, URINE AUTO NEGATIVE (NEGATIVE); BILIRUBIN, URINE AUTO NEGATIVE (NEGATIVE); BLOOD, URINE BLOOD NEGATIVE (NEGATIVE); COLOR, URINE YELLOW (YELLOW); GLUCOSE, URINE (UA) AUTO 2+ mg/dL (NEGATIVE); KETONE, URINE AUTO NEGATIVE (NEGATIVE); LEUKOCYTE ESTERASE, URINE AUTO NEGATIVE (NEGATIVE); MUCUS, URINE SMALL (NEGATIVE); NITRITE, URINE AUTO NEGATIVE (NEGATIVE); PROTEIN, URINE AUTO NEGATIVE (NEGATIVE); RBC, URINE AUTO 0 /HPF (0-3); SPECIFIC GRAVITY URINE AUTO 1.011 (1.002-1.035); SQUAMOUS EPITHELIAL CELL UR AU 1 /HPF (0-6); UROBILINOGEN, URINE AUTO 0.2 mg/dL (0.0-2.0); WBC, URINE AUTO 0 /HPF (0-3)
[2017-11-06 22:57] LABS: HEMATOCRIT 31.6 % (36.0-47.0); HEMOGLOBIN 10.4 g/dl (12.0-16.0); MEAN CORPUSCULAR HEMOGLOBIN 28.5 pg (27.0-33.0); MEAN CORPUSCULAR HGB CONC 32.9 g/dl (32.0-36.5); MEAN CORPUSCULAR VOLUME 86.6 fl (80.0-96.0); PLATELET COUNT, AUTOMATED 280 10^3/uL (150-450); RED BLOOD COUNT 3.65 10^6/uL (4.00-5.40); RED CELL DISTRIBUTION WIDTH 12.7 % (11.5-14.5); WHITE BLOOD COUNT 13.6 10^3/uL (4.0-10.0)
== END 2017-11-06 23:55 | disposition home or self-care (01) ==
LOC: M LDO 21:54
DX: O26.893 Other specified pregnancy related conditions, third trimester (principal); Z3A.32 32 weeks gestation of pregnancy; R42 Dizziness and giddiness; B37.3 Candidiasis of vulva and vagina; D64.9 Anemia, unspecified; Z88.8 Allergy status to other drugs, medicaments and biological substances; Z91.018 Allergy to other foods; O99.013 Anemia complicating pregnancy, third trimester
CPT/HCPCS: 59025

== ENCOUNTER 2017-11-20 01:27 | Outpatient (CLI) | payer OTHER ==
[2017-11-20 03:37] LABS: AMPHETAMINES URINE REFLEX NEGATIVE (NEGATIVE); BARBITURATES URINE REFLEX NEGATIVE (NEGATIVE); BENZODIAZEPINES URINE REFLEX NEGATIVE (NEGATIVE); CANNABINOIDS URINE REFLEX NEGATIVE (NEGATIVE); COCAINE METABOLITE URINE REFLE NEGATIVE (NEGATIVE); METHADONE URINE REFLEX NEGATIVE (NEGATIVE); OPIATES URINE REFLEX NEGATIVE (NEGATIVE); PHENCYCLIDINE URINE REFLEX NEGATIVE (NEGATIVE)
[2017-11-20 03:44] LABS: APPEARANCE, URINE CLEAR (CLEAR); BACTERIA, URINE AUTO 1+ (NEGATIVE); BILIRUBIN, URINE AUTO NEGATIVE (NEGATIVE); BLOOD, URINE BLOOD NEGATIVE (NEGATIVE); COLOR, URINE YELLOW (YELLOW); GLUCOSE, URINE (UA) AUTO NEGATIVE (NEGATIVE); KETONE, URINE AUTO NEGATIVE (NEGATIVE); LEUKOCYTE ESTERASE, URINE AUTO TRACE (NEGATIVE); MUCUS, URINE SMALL (NEGATIVE); NITRITE, URINE AUTO NEGATIVE (NEGATIVE); PROTEIN, URINE AUTO NEGATIVE (NEGATIVE); RBC, URINE AUTO 1 /HPF (0-3); SPECIFIC GRAVITY URINE AUTO 1.014 (1.002-1.035); SQUAMOUS EPITHELIAL CELL UR AU 0 /HPF (0-6); UROBILINOGEN, URINE AUTO 0.2 mg/dL (0.0-2.0); WBC, URINE AUTO 1 /HPF (0-3)
[2017-11-20] MEDS: ACETAMINOPHEN TAB 650MG DOSE (2X325MG) PO ×2 (10:09)
== END 2017-11-20 19:04 | disposition home or self-care (01) ==
LOC: M LDO 01:27
DX: O26.893 Other specified pregnancy related conditions, third trimester (principal); R10.2 Pelvic and perineal pain; O62.2 Other uterine inertia; Z3A.34 34 weeks gestation of pregnancy
CPT/HCPCS: 76815

== ENCOUNTER → 2017-11-27 | Outpatient (REF) | payer OTHER ==
[2017-11-28 12:43] LABS: INFLUENZA A AMPLIFICATION NEGATIVE (NEGATIVE); INFLUENZA B AMPLIFICATION NEGATIVE (NEGATIVE)
== END ==
LOC: M SFHCLERA 20:11
DX: R53.81 Other malaise (principal)
CPT/HCPCS: 87502

== ENCOUNTER 2017-11-28 23:17 | Outpatient (CLI) | payer OTHER | END 2017-11-29 00:45 | disposition home or self-care (01) | LOC: M LDO 23:17 | DX: O26.893 Other specified pregnancy related conditions, third trimester (principal); Z3A.35 35 weeks gestation of pregnancy; O99.333 Smoking (tobacco) complicating pregnancy, third trimester; F17.210 Nicotine dependence, cigarettes, uncomplicated; O99.343 Other mental disorders complicating pregnancy, third trimester; F43.10 Post-traumatic stress disorder, unspecified; O99.513 Diseases of the respiratory system complicating pregnancy, third trimester; J11.1 Influenza due to unidentified influenza virus with other respiratory manifestations | CPT/HCPCS: 59025 ==

== ENCOUNTER 2017-11-30 10:33 | Emergency (ER) | payer OTHER ==
[2017-11-30] MEDS: ACETAMINOPHEN 325 MG TAB PO (11:56)
[2017-11-30] MEDS: ALBUTEROL SULFATE 2.5 MG/0.5 ML INH NEB SOLN NEB (11:58)
== END 2017-11-30 12:55 | disposition home or self-care (01) ==
LOC: M ED 10:33
DX: O99.513 Diseases of the respiratory system complicating pregnancy, third trimester (principal); J45.901 Unspecified asthma with (acute) exacerbation; J20.9 Acute bronchitis, unspecified; Z3A.35 35 weeks gestation of pregnancy; O99.343 Other mental disorders complicating pregnancy, third trimester; F43.10 Post-traumatic stress disorder, unspecified; G43.909 Migraine, unspecified, not intractable, without status migrainosus; Z79.899 Other long term (current) drug therapy; Z91.018 Allergy to other foods; Z88.8 Allergy status to other drugs, medicaments and biological substances; O99.333 Smoking (tobacco) complicating pregnancy, third trimester; F17.210 Nicotine dependence, cigarettes, uncomplicated
CPT/HCPCS: 71045

== ENCOUNTER 2017-12-07 00:56 | Outpatient (CLI) | payer OTHER ==
[2017-12-07 02:12] LABS: HEMATOCRIT 31.3 % (36.0-47.0); HEMOGLOBIN 10.1 g/dl (12.0-16.0); MEAN CORPUSCULAR HEMOGLOBIN 27.7 pg (27.0-33.0); MEAN CORPUSCULAR HGB CONC 32.3 g/dl (32.0-36.5); PLATELET COUNT, AUTOMATED 271 10^3/uL (150-450); RED BLOOD COUNT 3.64 10^6/uL (4.00-5.40); RED CELL DISTRIBUTION WIDTH 13.5 % (11.5-14.5); WHITE BLOOD COUNT 11.6 10^3/uL (4.0-10.0)
== END 2017-12-07 02:55 | disposition home or self-care (01) ==
LOC: M LDO 00:56
DX: O99.89 Other specified diseases and conditions complicating pregnancy, childbirth and the puerperium (principal); Z3A.36 36 weeks gestation of pregnancy; W00.9XXA Unspecified fall due to ice and snow, initial encounter; O99.333 Smoking (tobacco) complicating pregnancy, third trimester; O99.343 Other mental disorders complicating pregnancy, third trimester; F43.10 Post-traumatic stress disorder, unspecified; F32.9 Major depressive disorder, single episode, unspecified; F41.9 Anxiety disorder, unspecified
CPT/HCPCS: 59025

== ENCOUNTER 2017-12-12 00:03 | Outpatient (CLI) | payer OTHER ==
[2017-12-12 01:12] LABS: HEMATOCRIT 35.4 % (36.0-47.0); HEMOGLOBIN 11.5 g/dl (12.0-16.0); MEAN CORPUSCULAR HEMOGLOBIN 27.6 pg (27.0-33.0); MEAN CORPUSCULAR HGB CONC 32.5 g/dl (32.0-36.5); MEAN CORPUSCULAR VOLUME 85.1 fl (80.0-96.0); PLATELET COUNT, AUTOMATED 270 10^3/uL (150-450); RED BLOOD COUNT 4.16 10^6/uL (4.00-5.40); RED CELL DISTRIBUTION WIDTH 13.4 % (11.5-14.5); WHITE BLOOD COUNT 7.6 10^3/uL (4.0-10.0)
[2017-12-12] MEDS: LR 1,000 ML IV ×4 (01:20→02:00)
[2017-12-12 01:47] LABS: ALBUMIN 3.1 GM/DL (3.2-5.2); ALBUMIN/GLOBULIN RATIO 0.78 (1.00-1.93); ALKALINE PHOSPHATASE 196 U/L (45-117); ALT/SGPT 12 U/L (12-78); ANION GAP 10 MEQ/L (8-16); AST/SGOT 19 U/L (7-37); BILIRUBIN,TOTAL 0.8 MG/DL (0.2-1.0); BLOOD UREA NITROGEN 12 MG/DL (7-18); CALCIUM LEVEL 8.5 MG/DL (8.5-10.1); CARBON DIOXIDE LEVEL 24 MEQ/L (21-32); CHLORIDE LEVEL 103 MEQ/L (98-107); CREATININE FOR GFR 0.71 MG/DL (0.55-1.30); GLOMERULAR FILTRATION RATE > 60.0 (>60); GLUCOSE, FASTING 89 MG/DL (70-100); POTASSIUM SERUM 3.8 MEQ/L (3.5-5.1); SODIUM LEVEL 137 MEQ/L (136-145); TOTAL PROTEIN 7.1 GM/DL (6.4-8.2)
[2017-12-12 02:56] LABS: APPEARANCE, URINE HAZY (CLEAR); BACTERIA, URINE AUTO 2+ (NEGATIVE); BILIRUBIN, URINE AUTO NEGATIVE (NEGATIVE); BLOOD, URINE BLOOD NEGATIVE (NEGATIVE); COLOR, URINE YELLOW (YELLOW); GLUCOSE, URINE (UA) AUTO NEGATIVE (NEGATIVE); KETONE, URINE AUTO TRACE mg/dL (NEGATIVE); LEUKOCYTE ESTERASE, URINE AUTO 1+ (NEGATIVE); MUCUS, URINE SMALL (NEGATIVE); NITRITE, URINE AUTO NEGATIVE (NEGATIVE); PROTEIN, URINE AUTO NEGATIVE (NEGATIVE); RBC, URINE AUTO 2 /HPF (0-3); SPECIFIC GRAVITY URINE AUTO 1.014 (1.002-1.035); SQUAMOUS EPITHELIAL CELL UR AU 4 /HPF (0-6); UROBILINOGEN, URINE AUTO 0.2 mg/dL (0.0-2.0); WBC, URINE AUTO 4 /HPF (0-3)
[2017-12-12 03:18] LABS: AMPHETAMINES URINE REFLEX NEGATIVE (NEGATIVE); BARBITURATES URINE REFLEX NEGATIVE (NEGATIVE); BENZODIAZEPINES URINE REFLEX NEGATIVE (NEGATIVE); CANNABINOIDS URINE REFLEX NEGATIVE (NEGATIVE); COCAINE METABOLITE URINE REFLE NEGATIVE (NEGATIVE); METHADONE URINE REFLEX NEGATIVE (NEGATIVE); OPIATES URINE REFLEX NEGATIVE (NEGATIVE); PHENCYCLIDINE URINE REFLEX NEGATIVE (NEGATIVE)
[2017-12-12] MEDS: raNITIdine SYRUP 150 MG/10 ML UDC PO ×2 (03:45)
== END 2017-12-12 06:53 | disposition home or self-care (01) ==
LOC: M LDO 00:03
DX: O99.89 Other specified diseases and conditions complicating pregnancy, childbirth and the puerperium (principal); Z3A.37 37 weeks gestation of pregnancy; R19.7 Diarrhea, unspecified; R11.0 Nausea; O99.333 Smoking (tobacco) complicating pregnancy, third trimester; O99.343 Other mental disorders complicating pregnancy, third trimester; F31.9 Bipolar disorder, unspecified; F43.10 Post-traumatic stress disorder, unspecified; F41.9 Anxiety disorder, unspecified; Z88.8 Allergy status to other drugs, medicaments and biological substances; Z91.018 Allergy to other foods; F17.210 Nicotine dependence, cigarettes, uncomplicated
CPT/HCPCS: 76815

== ENCOUNTER 2017-12-13 19:25 | Outpatient (CLI) | payer OTHER ==
[2017-12-14] MEDS: diphenhydrAMINE 25 MG CAP PO (02:59)
[2017-12-14] MEDS: ACETAMINOPHEN 325 MG TAB PO (02:59)
== END 2017-12-14 03:05 | disposition home or self-care (01) ==
LOC: M LDO 19:25
DX: O47.03 False labor before 37 completed weeks of gestation, third trimester (principal); O99.333 Smoking (tobacco) complicating pregnancy, third trimester; F17.210 Nicotine dependence, cigarettes, uncomplicated; O99.343 Other mental disorders complicating pregnancy, third trimester; F32.9 Major depressive disorder, single episode, unspecified; F41.9 Anxiety disorder, unspecified; O98.513 Other viral diseases complicating pregnancy, third trimester; B00.9 Herpesviral infection, unspecified; Z3A.37 37 weeks gestation of pregnancy
CPT/HCPCS: 76815

== ENCOUNTER 2017-12-14 05:20 | Inpatient (IN) | payer OTHER ==
[2017-12-14] MEDS ORDERED: ACETAMINOPHEN 500 MG TAB PO (06:30)
[2017-12-14] MEDS ORDERED: PROMETHAZINE 25 MG TAB PO (06:30)
[2017-12-14] MEDS ORDERED: MOM 30ML SUSPENSION UDC PO (06:30)
[2017-12-14] MEDS ORDERED: ANUSOL HC CREAM 30GM TOP (06:30)
[2017-12-14] MEDS ORDERED: DIBUCAINE 1% OINTMENT 30GM TOP (06:30)
[2017-12-14] MEDS ORDERED: DOCUSATE SODIUM 100 MG CAP PO (06:30)
[2017-12-14] MEDS: IBUPROFEN 800 MG TAB PO ×2 (07:25→20:19)
[2017-12-14] MEDS: PRENATAL VITAMINS CHEWABLE TABLET PO (08:40)
[2017-12-14] MEDS: FERROUS SULFATE 325MG TAB PO (08:40)
[2017-12-15] MEDS: IBUPROFEN 800 MG TAB PO (07:27)
[2017-12-15] MEDS: FERROUS SULFATE 325MG TAB PO (10:14)
[2017-12-15] MEDS: PRENATAL VITAMINS CHEWABLE TABLET PO (10:14)
== END 2017-12-15 11:47 | disposition home or self-care (01) | DRG 774 ==
LOC: M LDI 05:20 → M OBS 08:57
PROVIDERS: Midwife
PROC: 10E0XZZ Delivery of Products of Conception, External Approach (ICD-10-PCS; principal; 2017-12-14)
DX: Z39.0 Encounter for care and examination of mother immediately after delivery (principal); O98.52 Other viral diseases complicating childbirth; O99.824 Streptococcus B carrier state complicating childbirth; Z3A.37 37 weeks gestation of pregnancy; Z72.0 Tobacco use; B00.9 Herpesviral infection, unspecified; Z91.018 Allergy to other foods; Z88.8 Allergy status to other drugs, medicaments and biological substances; Z37.0 Single live birth

== ENCOUNTER → 2018-02-14 | Outpatient (CLI) | payer OTHER ==
[~2018-02-14] MED LIST changes: -ACET50TA PO; -AUGM875T28 PO; -COLA100C5 PO; +CONRAY-43 43% 50ML VIAL (Q9960) As Ordered; -FLAG500T PO; -FLUC150T; -HYDRO50TAB PO; -IBUP-1114 PO; -KEFL500C17 PO; +LIDOCAINE 1% MDV 20ML VIAL As Ordered; -PRENCHW PO; -PRENTAB7 PO; -REGL10TA6 PO; +TRIAMCINOLONE ACETONIDE SUSP 40 MG/ML VIAL (J3301) As Ordered; -UNIS25TA2; -VALT1TAB PO; -VIST50CA PO; -VITAMIN
== END ==
LOC: M RADPRO 09:57
DX: M25.552 Pain in left hip (principal); M24.152 Other articular cartilage disorders, left hip
CPT/HCPCS: 20610

== ENCOUNTER 2018-05-04 15:30 | Emergency (ER) | payer OTHER ==
[2018-05-04 16:34] LABS: AMPHETAMINES LEVEL URINE NEGATIVE (NEGATIVE); BARBITURATES URINE NEGATIVE (NEGATIVE); BENZODIAZEPINES URINE NEGATIVE (NEGATIVE); CANNABINOIDS URINE NEGATIVE (NEGATIVE); COCAINE METABOLITE URINE NEGATIVE (NEGATIVE); HEMATOCRIT 36.4 % (36.0-47.0); MEAN CORPUSCULAR HEMOGLOBIN 29.3 pg (27.0-33.0); MEAN CORPUSCULAR VOLUME 88.8 fl (80.0-96.0); METHADONE URINE NEGATIVE (NEGATIVE); OPIATES URINE NEGATIVE (NEGATIVE); PHENCYCLIDINE URINE NEGATIVE (NEGATIVE); PLATELET COUNT, AUTOMATED 401 10^3/uL (150-450); RED CELL DISTRIBUTION WIDTH 12.2 % (11.5-14.5); WHITE BLOOD COUNT 7.6 10^3/uL (4.0-10.0)
[2018-05-04 16:36] LABS: CONTROL LINE HCG INT CTR LINE PRESENT; HCG, SERUM QUALITATIVE NEGATIVE (NEGATIVE)
[2018-05-04 16:45] LABS: ALBUMIN 4.1 GM/DL (3.2-5.2); ALBUMIN/GLOBULIN RATIO 1.08 (1.00-1.93); ALKALINE PHOSPHATASE 58 U/L (45-117); ALT/SGPT 40 U/L (12-78); ANION GAP 9 MEQ/L (8-16); AST/SGOT 17 U/L (7-37); BILIRUBIN,DIRECT 0.1 MG/DL (0.0-0.2); BILIRUBIN,TOTAL 0.4 MG/DL (0.2-1.0); BLOOD UREA NITROGEN 13 MG/DL (7-18); CALCIUM LEVEL 8.8 MG/DL (8.5-10.1); CARBON DIOXIDE LEVEL 24 MEQ/L (21-32); CHLORIDE LEVEL 108 MEQ/L (98-107); CREATININE FOR GFR 0.93 MG/DL (0.55-1.30); ETHYL ALCOHOL (ETHANOL) 0.004 % (0.000-0.010); GLOMERULAR FILTRATION RATE > 60.0 (>60); GLUCOSE, FASTING 130 MG/DL (70-100); SALICYLATE LEVEL < 1.7 MG/DL (5.0-30.0); SODIUM LEVEL 141 MEQ/L (136-145); THYROID STIMULATING HORMONE 0.601 uIU/ML (0.358-3.740); TOTAL PROTEIN 7.9 GM/DL (6.4-8.2)
[2018-05-04 16:47] LABS: ACETAMINOPHEN LEVEL < 2.0 UG/ML (10.0-30.0)
== END 2018-05-04 20:39 | disposition home or self-care (01) ==
LOC: M ED 15:30
DX: F43.20 Adjustment disorder, unspecified (principal); F33.9 Major depressive disorder, recurrent, unspecified; Z79.899 Other long term (current) drug therapy; Z79.3 Long term (current) use of hormonal contraceptives; Z88.8 Allergy status to other drugs, medicaments and biological substances; Z91.018 Allergy to other foods; F17.210 Nicotine dependence, cigarettes, uncomplicated
CPT/HCPCS: G0480

== ENCOUNTER 2018-05-07 02:46 | Inpatient (IN) | payer OTHER ==
[2018-05-07 03:37] LABS: HEMATOCRIT 34.8 % (36.0-47.0); HEMOGLOBIN 11.3 g/dl (12.0-15.5); MEAN CORPUSCULAR HEMOGLOBIN 29.1 pg (27.0-33.0); MEAN CORPUSCULAR HGB CONC 32.5 g/dl (32.0-36.5); MEAN CORPUSCULAR VOLUME 89.7 fl (80.0-96.0); PLATELET COUNT, AUTOMATED 350 10^3/uL (150-450); RED BLOOD COUNT 3.88 10^6/uL (4.00-5.40); RED CELL DISTRIBUTION WIDTH 11.9 % (11.5-14.5); WHITE BLOOD COUNT 12.8 10^3/uL (4.0-10.0)
[2018-05-07 03:49] LABS: CONTROL LINE HCG INT CTR LINE PRESENT; HCG, SERUM QUALITATIVE NEGATIVE (NEGATIVE)
[2018-05-07 03:55] LABS: AMPHETAMINES LEVEL URINE NEGATIVE (NEGATIVE); BARBITURATES URINE NEGATIVE (NEGATIVE); BENZODIAZEPINES URINE NEGATIVE (NEGATIVE); CANNABINOIDS URINE NEGATIVE (NEGATIVE); COCAINE METABOLITE URINE NEGATIVE (NEGATIVE); METHADONE URINE NEGATIVE (NEGATIVE); OPIATES URINE NEGATIVE (NEGATIVE); PHENCYCLIDINE URINE NEGATIVE (NEGATIVE)
[2018-05-07 04:05] LABS: ALBUMIN 3.7 GM/DL (3.2-5.2); ALBUMIN/GLOBULIN RATIO 1.12 (1.00-1.93); ALKALINE PHOSPHATASE 52 U/L (45-117); ALT/SGPT 34 U/L (12-78); ANION GAP 8 MEQ/L (8-16); AST/SGOT 12 U/L (7-37); BILIRUBIN,DIRECT 0.1 MG/DL (0.0-0.2); BILIRUBIN,TOTAL 0.3 MG/DL (0.2-1.0); BLOOD UREA NITROGEN 15 MG/DL (7-18); CALCIUM LEVEL 8.3 MG/DL (8.5-10.1); CARBON DIOXIDE LEVEL 30 MEQ/L (21-32); CHLORIDE LEVEL 105 MEQ/L (98-107); CREATININE FOR GFR 0.84 MG/DL (0.55-1.30); ETHYL ALCOHOL (ETHANOL) < 0.003 % (0.000-0.010); GLOMERULAR FILTRATION RATE > 60.0 (>60); GLUCOSE, FASTING 82 MG/DL (70-100); POTASSIUM SERUM 3.4 MEQ/L (3.5-5.1); SALICYLATE LEVEL < 1.7 MG/DL (5.0-30.0); SODIUM LEVEL 143 MEQ/L (136-145)
[2018-05-07 04:08] LABS: ACETAMINOPHEN LEVEL < 2.0 UG/ML (10.0-30.0)
[2018-05-07] MEDS ORDERED: MAALOX 30 ML SUSP *UDC PO (05:30)
[2018-05-07] MEDS ORDERED: ACETAMINOPHEN TAB 650MG DOSE (2X325MG) PO (05:30)
[2018-05-07] MEDS ORDERED: MOM 30ML SUSPENSION UDC PO (05:30)
[2018-05-07] MEDS ORDERED: CLOBETASOL PROPIONATE EMOLLIENT 0.05% CR 60 GM TOP (10:15)
[2018-05-07] MEDS ORDERED: ALBUTEROL 90 MCG/ACT 8GM HFA INHALER INH (10:15)
[2018-05-07] MEDS: POTASSIUM CHLORIDE 10 MEQ SR TABLET PO (10:38)
[2018-05-07] MEDS: AUGMENTIN 875 MG TAB PO ×2 (10:38→21:45)
[2018-05-07] MEDS: CETIRIZINE (ZyrTEC) 10 MG TAB PO (10:38)
[2018-05-07] MEDS: FLUTICASONE PROP 0.05% NASAL SPRAY 16 GM (FLONASE) NARES (17:41)
[2018-05-08 08:08] LABS: HEMATOCRIT 37.2 % (36.0-47.0); HEMOGLOBIN 12.4 g/dl (12.0-15.5); MEAN CORPUSCULAR HEMOGLOBIN 29.7 pg (27.0-33.0); MEAN CORPUSCULAR HGB CONC 33.3 g/dl (32.0-36.5); PLATELET COUNT, AUTOMATED 367 10^3/uL (150-450); RED BLOOD COUNT 4.18 10^6/uL (4.00-5.40); RED CELL DISTRIBUTION WIDTH 11.9 % (11.5-14.5); WHITE BLOOD COUNT 6.2 10^3/uL (4.0-10.0)
[2018-05-08 08:37] LABS: ALBUMIN 3.5 GM/DL (3.2-5.2); ALBUMIN/GLOBULIN RATIO 0.97 (1.00-1.93); ALKALINE PHOSPHATASE 49 U/L (45-117); ALT/SGPT 36 U/L (12-78); ANION GAP 8 MEQ/L (8-16); AST/SGOT 13 U/L (7-37); BILIRUBIN,TOTAL 0.5 MG/DL (0.2-1.0); BLOOD UREA NITROGEN 12 MG/DL (7-18); CALCIUM LEVEL 8.7 MG/DL (8.5-10.1); CARBON DIOXIDE LEVEL 27 MEQ/L (21-32); CHLORIDE LEVEL 105 MEQ/L (98-107); CREATININE FOR GFR 0.83 MG/DL (0.55-1.30); FERRITIN 8 NG/ML (8-252); GLOMERULAR FILTRATION RATE > 60.0 (>60); GLUCOSE, FASTING 83 MG/DL (70-100); IRON (FE) 68 UG/DL (50-170); PERCENT SATURATION 17.7 % (13.2-45.0); POTASSIUM SERUM 3.8 MEQ/L (3.5-5.1); SODIUM LEVEL 140 MEQ/L (136-145); TOTAL IRON BINDING CAPACITY 384 UG/DL (250-450); TOTAL PROTEIN 7.1 GM/DL (6.4-8.2)
[2018-05-08] MEDS: FLUTICASONE PROP 0.05% NASAL SPRAY 16 GM (FLONASE) NARES (09:00)
[2018-05-08] MEDS: CETIRIZINE (ZyrTEC) 10 MG TAB PO (09:31)
[2018-05-08] MEDS: AUGMENTIN 875 MG TAB PO ×2 (09:31→22:30)
[2018-05-08] MEDS: VENLAFAXINE **XR** 37.5 MG CAPSULE PO (11:16)
[2018-05-08 11:38] LABS: FOLATE 14.9 NG/ML (>5.4); VITAMIN B12 LEVEL 668 PG/ML (247-911)
[2018-05-09] MEDS: FLUTICASONE PROP 0.05% NASAL SPRAY 16 GM (FLONASE) NARES (09:00)
[2018-05-09] MEDS: AUGMENTIN 875 MG TAB PO ×2 (09:14→21:12)
[2018-05-09] MEDS: VENLAFAXINE **XR** 37.5 MG CAPSULE PO (09:14)
[2018-05-09] MEDS: CETIRIZINE (ZyrTEC) 10 MG TAB PO (09:14)
[2018-05-09] MEDS: traZODone 50 MG TAB PO (22:05)
[2018-05-10] MEDS: CETIRIZINE (ZyrTEC) 10 MG TAB PO (08:21)
[2018-05-10] MEDS: VENLAFAXINE **XR** 37.5 MG CAPSULE PO (08:21)
[2018-05-10] MEDS: AUGMENTIN 875 MG TAB PO (08:21)
[2018-05-10] MEDS: FLUTICASONE PROP 0.05% NASAL SPRAY 16 GM (FLONASE) NARES (09:00)
== END 2018-05-10 10:00 | disposition home or self-care (01) | DRG 881 ==
LOC: M ED 02:46 → M ED INP 05:22 → M PSY 08:20
DX: F43.21 Adjustment disorder with depressed mood (principal); R45.851 Suicidal ideations; F43.10 Post-traumatic stress disorder, unspecified; Z88.8 Allergy status to other drugs, medicaments and biological substances; Z91.018 Allergy to other foods; F41.9 Anxiety disorder, unspecified; J45.909 Unspecified asthma, uncomplicated; G43.909 Migraine, unspecified, not intractable, without status migrainosus; L21.9 Seborrheic dermatitis, unspecified; F17.200 Nicotine dependence, unspecified, uncomplicated; D72.829 Elevated white blood cell count, unspecified; E87.6 Hypokalemia; D64.9 Anemia, unspecified; Z79.899 Other long term (current) drug therapy

== ENCOUNTER 2018-08-16 21:16 | Emergency (ER) | payer OTHER ==
[2018-08-16 22:26] LABS: HEMATOCRIT 37.6 % (36.0-47.0); HEMOGLOBIN 12.3 g/dl (12.0-15.5); MEAN CORPUSCULAR HEMOGLOBIN 29.1 pg (27.0-33.0); MEAN CORPUSCULAR HGB CONC 32.7 g/dl (32.0-36.5); MEAN CORPUSCULAR VOLUME 89.1 fl (80.0-96.0); PLATELET COUNT, AUTOMATED 344 10^3/uL (150-450); RED BLOOD COUNT 4.22 10^6/uL (4.00-5.40); RED CELL DISTRIBUTION WIDTH 11.9 % (11.5-14.5)
[2018-08-16 22:57] LABS: ALBUMIN/GLOBULIN RATIO 1.21 (1.00-1.93); ALKALINE PHOSPHATASE 50 U/L (45-117); ALT/SGPT 25 U/L (12-78); ANION GAP 8 MEQ/L (8-16); AST/SGOT 14 U/L (7-37); BILIRUBIN,DIRECT 0.2 MG/DL (0.0-0.2); BILIRUBIN,TOTAL 0.7 MG/DL (0.2-1.0); BLOOD UREA NITROGEN 14 MG/DL (7-18); CALCIUM LEVEL 8.7 MG/DL (8.5-10.1); CARBON DIOXIDE LEVEL 27 MEQ/L (21-32); CHLORIDE LEVEL 106 MEQ/L (98-107); CREATININE FOR GFR 0.98 MG/DL (0.55-1.30); ETHYL ALCOHOL (ETHANOL) < 0.003 % (0.000-0.010); GLOMERULAR FILTRATION RATE > 60.0 (>60); GLUCOSE, FASTING 114 MG/DL (70-100); POTASSIUM SERUM 3.8 MEQ/L (3.5-5.1); SALICYLATE LEVEL < 1.7 MG/DL (5.0-30.0); SODIUM LEVEL 141 MEQ/L (136-145); THYROID STIMULATING HORMONE 0.716 uIU/ML (0.358-3.740); TOTAL PROTEIN 7.3 GM/DL (6.4-8.2)
[2018-08-16 22:58] LABS: ACETAMINOPHEN LEVEL < 2.0 UG/ML (10.0-30.0); AMPHETAMINES LEVEL URINE POSITIVE (NEGATIVE); BARBITURATES URINE NEGATIVE (NEGATIVE); BENZODIAZEPINES URINE NEGATIVE (NEGATIVE); CANNABINOIDS URINE NEGATIVE (NEGATIVE); COCAINE METABOLITE URINE NEGATIVE (NEGATIVE); METHADONE URINE NEGATIVE (NEGATIVE); OPIATES URINE NEGATIVE (NEGATIVE); PHENCYCLIDINE URINE NEGATIVE (NEGATIVE)
[2018-08-17 01:16] LABS: CONTROL LINE HCG INT CTR LINE PRESENT; HCG, SERUM QUALITATIVE NEGATIVE (NEGATIVE)
== END 2018-08-17 01:15 | disposition short-term general hospital (02) ==
LOC: M ED 21:16
DX: R45.851 Suicidal ideations (principal); F60.3 Borderline personality disorder; Z79.899 Other long term (current) drug therapy; Z79.3 Long term (current) use of hormonal contraceptives; Z88.8 Allergy status to other drugs, medicaments and biological substances; Z91.018 Allergy to other foods; F17.210 Nicotine dependence, cigarettes, uncomplicated
CPT/HCPCS: 93005

== ENCOUNTER → 2019-02-01 | Outpatient (REF) ==
[~2019-02-01] MED LIST changes: +AMOX-CLAV PO; +AMOX875T2 PO; +ANUS2.5C2 TOP; +AUGM875T28 PO; +CALA10LO TOP; +CLOB0.0548 TOP; +COLA100C5 PO; -CONRAY-43 43% 50ML VIAL (Q9960) As Ordered; +DEXA4TA PO; +FERR325T3 PO; +FLAG500T PO; +FLUC150T; +HYDRO50TAB PO; +IBUP-1114 PO; +IBUP1TAB7 PO; +KEFL500C17 PO; -LIDOCAINE 1% MDV 20ML VIAL As Ordered; +MAPA500T2 PO; +MELO7.5T7 PO; +NEXP1IMP SC; +NUPE1OIN2 TOP; +PRENCHW PO; +PRENTAB20 PO; +PRENTAB7 PO; +PRENTAB9 PO; +PROAAER10 INH; +PROAAER10 PO; +REGL10TA6 PO; +TRAZO50TA PO; -TRIAMCINOLONE ACETONIDE SUSP 40 MG/ML VIAL (J3301) As Ordered; +TUMS500C PO; +UNIS25TA3; +VALT1TAB PO; +VENL37.598 PO; +VIST50CA PO; +VITAMIN; +ZITHTAB PO
== END ==
LOC: M LAB 08:55
PROVIDERS: ATTEND Nurse Practitioner Adult Health
DX: Z00.00 Encounter for general adult medical examination without abnormal findings (principal)

== ENCOUNTER → 2019-04-06 | Outpatient (REF) | payer OTHER ==
[~2019-04-06] MED LIST changes: +TRAZ1TAB10 PO; -TRAZO50TA PO
[2019-04-06 17:34] LABS: CHLAMYDIA DNA AMPLIFICATION NEGATIVE (NEGATIVE); GC DNA AMPLIFICATION NEGATIVE (NEGATIVE)
== END ==
LOC: M LAB REF 15:43
PROVIDERS: ATTEND Nurse Practitioner Family
DX: N76.0 Acute vaginitis (principal)

== ENCOUNTER → 2019-12-02 | Outpatient (REF) | payer OTHER ==
[~2019-12-02] MED LIST changes: +HYDR1TAB33 PO; -HYDRO50TAB PO
[2019-12-02 17:22] LABS: APPEARANCE, URINE MANUAL TURBID (CLEAR); COLOR, URINE MANUAL BROWN (YELLOW); GLUCOSE, URINE (UA) MANUAL OBSCURED mg/dL (NEGATIVE); KETONE, URINE MANUAL OBSCURED mg/dL (NEGATIVE); PROTEIN, URINE MANUAL OBSCURED mg/dL (NEGATIVE); UROBILINOGEN, URINE MANUAL OBSCURED mg/dl (NORMAL)
[2019-12-02 17:23] LABS: BILIRUBIN, URINE MANUAL OBSCURED (NEGATIVE); BLOOD URINE MANUAL POSITIVE (NEGATIVE); LEUKOCYTE ESTERASE, URINE MAN POSITIVE (NEGATIVE); NITRITE, URINE MANUAL OBSCURED (NEGATIVE)
[2019-12-02 18:23] LABS: BACTERIA, URINE LARGE AMOUNT; HYALINE CAST, URINE NONE SEEN /lpf (0-1); RBC, URINE TNTC /hpf (0-3); SQUAMOUS EPITHELIAL CELL URINE NONE SEEN /hpf (SMALL AMT); WBC, URINE TNTC /hpf (0-3)
== END ==
LOC: M LAB REF 16:28
PROVIDERS: ATTEND Physician Assistant Medical
DX: N39.0 Urinary tract infection, site not specified (principal)

== ENCOUNTER 2020-10-11 06:47 | Emergency (ER) | payer OTHER ==
[~2020-10-11] VITALS: Ht 162.6 cm; Wt 59.2 kg
[2020-10-11] MEDS ORDERED: GABA-843 (06:58)
[2020-10-11] MEDS ORDERED: CITA40TA4 (06:58)
[2020-10-11] MEDS ORDERED: LAMO25TA4 (06:58)
[2020-10-11] MEDS ORDERED: FAMOTIDINE INJ 20MG/2ML VIAL (S0028 PER 1) IVP ONE (07:30)
[2020-10-11] MEDS ORDERED: diphenhydrAMINE 50MG/ML VIAL (J1200) IV ONE (07:30)
[2020-10-11] MEDS ORDERED: methylPREDNISolone 125MG 2ML VIAL IV ONE (07:30)
[2020-10-11 08:12] VITALS: BP 134/92
[2020-10-11] MEDS ORDERED: PEPC1TAB5 PO (08:43)
== END 2020-10-11 08:16 | disposition home or self-care (01) ==
LOC: M ED 06:47
DX: T78.40XA Allergy, unspecified, initial encounter (principal); F31.89 Other bipolar disorder; F41.9 Anxiety disorder, unspecified; G43.909 Migraine, unspecified, not intractable, without status migrainosus; F17.200 Nicotine dependence, unspecified, uncomplicated; Z79.899 Other long term (current) drug therapy; Z88.8 Allergy status to other drugs, medicaments and biological substances; Z91.018 Allergy to other foods
CPT/HCPCS: 96374; 96375; 99284; J1200; J2930

== ENCOUNTER 2020-10-30 03:56 | Emergency (ER) | payer OTHER ==
[~2020-10-30] VITALS: Ht 162.6 cm; Wt 58.1 kg
[~2020-10-30 03:56] MED LIST changes: +CITA40TA4; +GABA-843; +LAMO25TA4; +PEPC1TAB5 PO
[2020-10-30 04:22] LABS: HEMATOCRIT 39.2 % (36.0-47.0); HEMOGLOBIN 12.3 g/dl (12.0-15.5); MEAN CORPUSCULAR HEMOGLOBIN 29.4 pg (27.0-33.0); MEAN CORPUSCULAR HGB CONC 31.4 g/dl (32.0-36.5); MEAN CORPUSCULAR VOLUME 93.8 fl (80.0-96.0); PLATELET COUNT, AUTOMATED 334 10^3/uL (150-450); RED BLOOD COUNT 4.18 10^6/uL (4.00-5.40); WHITE BLOOD COUNT 12.4 10^3/uL (4.0-10.0)
[2020-10-30 04:53] LABS: HCG, SERUM QUALITATIVE NEGATIVE (NEGATIVE)
[2020-10-30 05:13] LABS: AMPHETAMINES LEVEL URINE NEGATIVE (NEGATIVE); BARBITURATES URINE NEGATIVE (NEGATIVE); BENZODIAZEPINES URINE NEGATIVE (NEGATIVE); CANNABINOIDS URINE POSITIVE (NEGATIVE); COCAINE METABOLITE URINE POSITIVE (NEGATIVE); METHADONE URINE NEGATIVE (NEGATIVE); OPIATES URINE NEGATIVE (NEGATIVE); PHENCYCLIDINE URINE NEGATIVE (NEGATIVE)
[2020-10-30 05:20] LABS: ACETAMINOPHEN LEVEL < 2.0 UG/ML (10.0-30.0); ALBUMIN 4.1 GM/DL (3.2-5.2); ALT/SGPT 25 U/L (12-78); BILIRUBIN,DIRECT 0.1 MG/DL (0.0-0.2); BILIRUBIN,TOTAL 0.3 MG/DL (0.2-1.0); BLOOD UREA NITROGEN 23 MG/DL (7-18); CALCIUM LEVEL 8.4 MG/DL (8.5-10.1); CARBON DIOXIDE LEVEL 29 MEQ/L (21-32); CHLORIDE LEVEL 108 MEQ/L (98-107); CREATININE FOR GFR 1.17 MG/DL (0.55-1.30); ETHYL ALCOHOL (ETHANOL) 0.004 % (0.000-0.010); GLOMERULAR FILTRATION RATE > 60.0 (>60); GLUCOSE, FASTING 112 MG/DL (70-100); POTASSIUM SERUM 3.2 MEQ/L (3.5-5.1); SALICYLATE LEVEL 1.8 MG/DL (5.0-30.0); SODIUM LEVEL 140 MEQ/L (136-145); TOTAL PROTEIN 7.8 GM/DL (6.4-8.2)
[2020-10-30] MEDS ORDERED: ACETAMINOPHEN TAB 650MG DOSE (2X325MG) PO ONE (05:45)
[2020-10-30] MEDS ORDERED: POTASSIUM CHLORIDE 10 MEQ SR TABLET PO ONE (06:15)
[2020-10-30] MEDS ORDERED: LOSARTAN 50MG TABLET PO ONE (06:15)
[2020-10-30] MEDS ORDERED: ALPRAZolam 0.5 MG TAB PO ONE (06:15)
[2020-10-30 07:18] VITALS: BP 139/94
[2020-10-30 08:49] LABS: APPEARANCE, URINE HAZY (CLEAR); BACTERIA, URINE AUTO NEGATIVE (NEGATIVE); BILIRUBIN, URINE AUTO NEGATIVE (NEGATIVE); BLOOD, URINE BLOOD NEGATIVE (NEGATIVE); COLOR, URINE YELLOW (YELLOW); GLUCOSE, URINE (UA) AUTO NEGATIVE (NEGATIVE); KETONE, URINE AUTO NEGATIVE (NEGATIVE); LEUKOCYTE ESTERASE, URINE AUTO NEGATIVE (NEGATIVE); MUCUS, URINE SMALL (NEGATIVE); NITRITE, URINE AUTO NEGATIVE (NEGATIVE); PROTEIN, URINE AUTO 1+ mg/dL (NEGATIVE); RBC, URINE AUTO 1 /HPF (0-3); SPECIFIC GRAVITY URINE AUTO 1.025 (1.002-1.035); SQUAMOUS EPITHELIAL CELL UR AU 6 /HPF (0-6); UROBILINOGEN, URINE AUTO 0.2 mg/dL (0.0-2.0); WBC, URINE AUTO 2 /HPF (0-3)
[2020-10-30 12:45] LABS: HEMATOCRIT 38.7 % (36.0-47.0); HEMOGLOBIN 12.3 g/dl (12.0-15.5); MEAN CORPUSCULAR HEMOGLOBIN 29.5 pg (27.0-33.0); MEAN CORPUSCULAR HGB CONC 31.8 g/dl (32.0-36.5); MEAN CORPUSCULAR VOLUME 92.8 fl (80.0-96.0); PLATELET COUNT, AUTOMATED 341 10^3/uL (150-450); RED BLOOD COUNT 4.17 10^6/uL (4.00-5.40); WHITE BLOOD COUNT 11.2 10^3/uL (4.0-10.0)
[2020-10-30 13:24] LABS: BLOOD UREA NITROGEN 20 MG/DL (7-18); CALCIUM LEVEL 8.7 MG/DL (8.5-10.1); CARBON DIOXIDE LEVEL 29 MEQ/L (21-32); CHLORIDE LEVEL 107 MEQ/L (98-107); CREATININE FOR GFR 1.01 MG/DL (0.55-1.30); GLOMERULAR FILTRATION RATE > 60.0 (>60); GLUCOSE, FASTING 84 MG/DL (70-100); POTASSIUM SERUM 4.2 MEQ/L (3.5-5.1); SODIUM LEVEL 139 MEQ/L (136-145)
[2020-10-30 18:41] VITALS: BP 138/94
--- NOTE | 2020-10-30 21:35 | ECGEPIP ---
[facility] - ED Test Date: 2020-10-30 Pat Name: TUCKER NAPIER Department: Room: - Gender: Female Medical Oncology Physician: : [id number] Requested By: Doreen Arellano Order Number: [id number] Reading MD: Jonnathan Smyth Measurements Intervals [place] Rate: 84 P: 50 CT: 144 QRS: 53 QRSD: 78 T: 32 QT: 354 QTc: 421 Interpretive Statements SINUS RHYTHM BENIGN EARLY REPOLARIZATION SIMILAR TO 08/16/18 Electronically Signed on 10-30-2020 21:35:37 EST by Jonnathan Smyth
== END 2020-10-30 18:45 ==
LOC: M ED 03:56
DX: R45.851 Suicidal ideations (principal); I10 Essential (primary) hypertension; F32.9 Major depressive disorder, single episode, unspecified; F41.9 Anxiety disorder, unspecified; J45.909 Unspecified asthma, uncomplicated; F17.200 Nicotine dependence, unspecified, uncomplicated; Z79.899 Other long term (current) drug therapy; Z91.018 Allergy to other foods; Z88.8 Allergy status to other drugs, medicaments and biological substances
CPT/HCPCS: 80048; 80076; 80307; 81001; 84443; 84703; 85027; 87486; 87581; 87633; 87798; 93005; 99285; G0480

== ENCOUNTER → 2020-11-10 | Outpatient (REF) | payer OTHER ==
[~2020-11-10] MED LIST changes: +GABA-282; -GABA-843
== END ==
LOC: M SFHCWAGY 13:18
PROVIDERS: ATTEND Advanced Practice Midwife
DX: Z12.4 Encounter for screening for malignant neoplasm of cervix (principal)
CPT/HCPCS: 87624; G0101; G0123

== ENCOUNTER → 2020-11-17 | Outpatient (CLI) | payer OTHER ==
--- NOTE | 2020-11-18 09:14 | REP ---
INDICATION: IMPLANTABLE SUBDERMAL CONTRACEPTIVE SURVEILLANCE COMPARISON: None TECHNIQUE: Realtime grayscale and color B-mode ultrasound examination using linear high-frequency transducer. FINDINGS: Directed ultrasound examination overlying the area of pain at the left upper arm demonstrates an echogenic linear structure with shadowing consistent with the given history of subdermal contraceptive device. No associated fluid collection/abscess or further pathology identified by ultrasound. IMPRESSION: No obvious abnormality by sonographic evaluation. <Electronically signed by Jorge Umanzor > 11/18/20 0934
== END ==
LOC: M WHC 12:38
PROVIDERS: ATTEND Advanced Practice Midwife
DX: M79.622 Pain in left upper arm (principal); Z30.46 Encounter for surveillance of implantable subdermal contraceptive

== ENCOUNTER → 2020-12-21 | Outpatient (REF) | payer OTHER ==
[~2020-12-21] MED LIST changes: +BACI500O21 TOP; +D31000TA2; +HYDR-3363; +IRON1TAB2 PO; +PRAZ1CAP; +VALA1TAB5; +VITAE40CA
[2020-12-25 17:47] LABS: CHLAMYDIA DNA AMPLIFICATION POSITIVE (NEGATIVE); GC DNA AMPLIFICATION NEGATIVE (NEGATIVE)
== END ==
LOC: M SFHCWAGY 16:43
PROVIDERS: ATTEND Nurse Practitioner Women's Health
DX: Z11.3 Encounter for screening for infections with a predominantly sexual mode of transmission (principal)
CPT/HCPCS: 87210; 87661; G0463

== ENCOUNTER 2021-01-10 18:10 | Emergency (ER) | payer OTHER ==
[~2021-01-10] VITALS: Ht 162.6 cm; Wt 62.2 kg
[~2021-01-10 18:10] MED LIST changes: -BACI500O21 TOP; -D31000TA2; -HYDR-3363; -IRON1TAB2 PO; -PRAZ1CAP; -VALA1TAB5; -VITAE40CA
[2021-01-10 18:16] VITALS: BP 146/92
[2021-01-10] MEDS ORDERED: HYDR-3363 (18:20)
[2021-01-10] MEDS ORDERED: VALA1TAB5 (18:20)
[2021-01-10] MEDS ORDERED: MULTIVITAMIN -ADULT INJECTION 10 ML, THIAMINE INJection 100 MG, FOLIC ACID 1 MG in NS 1... IV ONE (18:55)
[2021-01-10] MEDS ORDERED: ONDANSETRON 4MG/2ML VIAL IV ONE (18:55)
[2021-01-10 19:36] LABS: BASO # 0.1 10^3/uL (0.0-0.2); BASO % 0.6 % (0.0-1.0); EOS # 0.5 10^3/uL (0.0-0.5); EOS % 5.9 % (0.0-3.0); HEMATOCRIT 41.3 % (36.0-47.0); HEMOGLOBIN 13.6 g/dl (12.0-15.5); LYMPH # 1.5 10^3/uL (1.5-5.0); LYMPH % 17.8 % (24.0-44.0); MEAN CORPUSCULAR HEMOGLOBIN 30.4 pg (27.0-33.0); MEAN CORPUSCULAR HGB CONC 32.9 g/dl (32.0-36.5); MEAN CORPUSCULAR VOLUME 92.4 fl (80.0-96.0); MONO # 0.5 10^3/uL (0.0-0.8); MONO % 6.2 % (2.0-8.0); NEUTROPHILS # 5.8 10^3/uL (1.5-8.5); NEUTROPHILS % 69.3 % (36.0-66.0); PLATELET COUNT, AUTOMATED 371 10^3/uL (150-450); RED BLOOD COUNT 4.47 10^6/uL (4.00-5.40); WHITE BLOOD COUNT 8.4 10^3/uL (4.0-10.0)
[2021-01-10 19:46] LABS: INR 1.07; PROTHROMBIN TIME 14.2 SECONDS (12.5-14.3)
[2021-01-10 19:47] LABS: PARTIAL THROMBOPLASTIN TIME 30.2 SECONDS (24.2-38.5)
[2021-01-10 20:08] LABS: ALBUMIN 4.2 GM/DL (3.2-5.2); BILIRUBIN,DIRECT 0.1 MG/DL (0.0-0.2); BILIRUBIN,TOTAL 0.5 MG/DL (0.2-1.0); TOTAL PROTEIN 7.9 GM/DL (6.4-8.2)
[2021-01-10 20:41] LABS: AMPHETAMINES LEVEL URINE NEGATIVE (NEGATIVE); BARBITURATES URINE NEGATIVE (NEGATIVE); BENZODIAZEPINES URINE NEGATIVE (NEGATIVE); CANNABINOIDS URINE POSITIVE (NEGATIVE); COCAINE METABOLITE URINE POSITIVE (NEGATIVE); METHADONE URINE NEGATIVE (NEGATIVE); OPIATES URINE NEGATIVE (NEGATIVE); PHENCYCLIDINE URINE NEGATIVE (NEGATIVE)
== END 2021-01-10 21:53 | disposition home or self-care (01) ==
LOC: M ED 18:10
DX: R11.2 Nausea with vomiting, unspecified (principal); G43.909 Migraine, unspecified, not intractable, without status migrainosus; F41.9 Anxiety disorder, unspecified; F32.9 Major depressive disorder, single episode, unspecified; F60.3 Borderline personality disorder; F17.200 Nicotine dependence, unspecified, uncomplicated; F12.10 Cannabis abuse, uncomplicated; F10.10 Alcohol abuse, uncomplicated; Z86.19 Personal history of other infectious and parasitic diseases; Z79.899 Other long term (current) drug therapy; Z88.8 Allergy status to other drugs, medicaments and biological substances; Z91.018 Allergy to other foods
CPT/HCPCS: 80047; 80076; 80307; 81001; 83690; 84702; 85025; 85610; 85730; 96365; 96366; 96375; 99284; J2405; J3411

== ENCOUNTER 2021-01-30 15:39 | Emergency (ER) | payer OTHER ==
[~2021-01-30] VITALS: Ht 162.6 cm; Wt 60.1 kg
[2021-01-30 15:39] VITALS: BP 134/86
[~2021-01-30 15:39] MED LIST changes: +HYDR-3363; +VALA1TAB5
[2021-01-30] MEDS ORDERED: ONDANSETRON 4 MG ORAL DISINTEGRATING TAB PO ONE ×2 (15:45→17:05)
[2021-01-30] MEDS ORDERED: PRAZ1CAP (15:46)
[2021-01-30] MEDS ORDERED: PROMETHAZINE INJ 25 MG/ML VIAL (J2550) IM ONE (16:00)
== END 2021-01-30 17:18 | disposition home or self-care (01) ==
LOC: M ED 15:39
DX: R11.2 Nausea with vomiting, unspecified (principal); F41.9 Anxiety disorder, unspecified; F32.9 Major depressive disorder, single episode, unspecified; F60.3 Borderline personality disorder; G43.909 Migraine, unspecified, not intractable, without status migrainosus; F17.200 Nicotine dependence, unspecified, uncomplicated; Z79.899 Other long term (current) drug therapy; Z91.018 Allergy to other foods; Z88.8 Allergy status to other drugs, medicaments and biological substances
CPT/HCPCS: 96372; 99282; Q0162

== ENCOUNTER 2021-02-01 13:38 | Emergency (ER) | payer OTHER ==
[~2021-02-01] VITALS: Ht 162.6 cm; Wt 63.4 kg
[~2021-02-01 13:38] MED LIST changes: -BACI500O21 TOP; -D31000TA2; -IRON1TAB2 PO; -VITAE40CA
[2021-02-01 13:40] VITALS: BP 154/97
[2021-02-01] MEDS ORDERED: VITAE40CA (13:53)
[2021-02-01] MEDS ORDERED: IRON1TAB2 PO (13:53)
[2021-02-01] MEDS ORDERED: D31000TA2 (13:53)
[2021-02-01] MEDS ORDERED: NEXP1IMP SC (13:54)
[2021-02-01] MEDS ORDERED: NORCO, ANEXSIA 5/325MG TABLET (HYDROcodone/ACETAMINOPHEN) PO ONE (17:15)
[2021-02-01] MEDS ORDERED: AUGMENTIN 875 MG TAB PO ONE (17:15)
[2021-02-01] MEDS ORDERED: LIDOCAINE 1% MDV 20ML VIAL SC ONE (17:15)
[2021-02-01] MEDS ORDERED: NEOSPORIN OINT 0.9 GM PKT TOP ONE (17:25)
[2021-02-01] MEDS ORDERED: AUGM875T28 PO (17:49)
[2021-02-01] MEDS ORDERED: BACI500O21 TOP (17:49)
== END 2021-02-01 18:03 | disposition home or self-care (01) ==
LOC: M ED 13:38
DX: S01.85XA Open bite of other part of head, initial encounter (principal); W54.0XXA Bitten by dog, initial encounter; Y92.009 Unspecified place in unspecified non-institutional (private) residence as the place of occurrence of the external cause; Y93.9 Activity, unspecified; Y99.9 Unspecified external cause status; R51.9 Headache, unspecified; F17.200 Nicotine dependence, unspecified, uncomplicated

== ENCOUNTER → 2021-02-01 | Outpatient (CLI) | payer OTHER ==
[~2021-02-01] MED LIST changes: +BACI500O21 TOP; +D31000TA2; +IRON1TAB2 PO; +PRAZ1CAP; +VITAE40CA
--- NOTE | 2021-02-02 09:46 | REPPI ---
INDICATION: CONTACEPTIVE IMPLANTE COMPARISON: None. TECHNIQUE: AP and lateral views of the left humerus. FINDINGS: Contraceptive implant is identified within the deep subcutaneous tissue overlying the mid humerus. No adjacent subcutaneous emphysema or abnormality noted by radiographic evaluation. The osseous structures and joint spaces are normal. IMPRESSION: Contraceptive device in satisfactory position. No acute fracture or dislocation. <Electronically signed by Jorge Umanzor > 02/02/21 0992
== END ==
LOC: M PLAIMG 12:01
PROVIDERS: ATTEND Obstetrics & Gynecology
DX: Z30.49 Encounter for surveillance of other contraceptives (principal)

== ENCOUNTER → 2021-02-02 | Outpatient (REF) | payer OTHER ==
[~2021-02-02] MED LIST changes: +BACI500O21 TOP; +D31000TA2; +IRON1TAB2 PO; +VITAE40CA
== END ==
LOC: M LAB REF 16:08
PROVIDERS: ATTEND Surgery
DX: S40.852A Superficial foreign body of left upper arm, initial encounter (principal); W18.30XA Fall on same level, unspecified, initial encounter; Y92.009 Unspecified place in unspecified non-institutional (private) residence as the place of occurrence of the external cause

== ENCOUNTER 2021-03-04 12:30 | Emergency (ER) | payer OTHER ==
[~2021-03-04] VITALS: Ht 162.6 cm; Wt 63.6 kg
[2021-03-04] MEDS ORDERED: SERO1TAB3 PO (12:36)
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
[2021-03-04 14:31] VITALS: BP 117/54
== END 2021-03-04 14:40 | disposition home or self-care (01) ==
LOC: M ED 12:30
DX: S93.401A Sprain of unspecified ligament of right ankle, initial encounter (principal); W19.XXXA Unspecified fall, initial encounter; Y92.009 Unspecified place in unspecified non-institutional (private) residence as the place of occurrence of the external cause; Y93.9 Activity, unspecified; Y99.9 Unspecified external cause status; I10 Essential (primary) hypertension; Z79.899 Other long term (current) drug therapy; Z88.8 Allergy status to other drugs, medicaments and biological substances; Z91.018 Allergy to other foods

== ENCOUNTER 2021-03-19 01:35 | Emergency (ER) | payer OTHER ==
[~2021-03-19] VITALS: Ht 162.6 cm; Wt 61.8 kg
[~2021-03-19 01:35] MED LIST changes: +SERO1TAB3 PO
[2021-03-19] MEDS ORDERED: QUET50TA3 PO (01:42)
[2021-03-19 02:37] LABS: BASO # 0.1 10^3/uL (0.0-0.2); BASO % 0.5 % (0.0-1.0); EOS # 0.7 10^3/uL (0.0-0.5); EOS % 6.6 % (0.0-3.0); HEMATOCRIT 36.6 % (36.0-47.0); HEMOGLOBIN 11.9 g/dl (12.0-15.5); LYMPH # 2.1 10^3/uL (1.5-5.0); LYMPH % 19.1 % (24.0-44.0); MEAN CORPUSCULAR HEMOGLOBIN 30.1 pg (27.0-33.0); MEAN CORPUSCULAR HGB CONC 32.5 g/dl (32.0-36.5); MEAN CORPUSCULAR VOLUME 92.4 fl (80.0-96.0); MONO # 0.7 10^3/uL (0.0-0.8); MONO % 6.6 % (2.0-8.0); NEUTROPHILS # 7.4 10^3/uL (1.5-8.5); NEUTROPHILS % 66.9 % (36.0-66.0); PLATELET COUNT, AUTOMATED 417 10^3/uL (150-450); RED BLOOD COUNT 3.96 10^6/uL (4.00-5.40)
[2021-03-19 03:00] LABS: HCG, SERUM QUALITATIVE NEGATIVE (NEGATIVE)
[2021-03-19 03:15] LABS: BLOOD UREA NITROGEN 11 MG/DL (7-18); CALCIUM LEVEL 9.2 MG/DL (8.5-10.1); CARBON DIOXIDE LEVEL 28 MEQ/L (21-32); CHLORIDE LEVEL 107 MEQ/L (98-107); CK-MB VALUE MASS < 1.0 NG/ML (<3.6); CPK CREATINE PHOSPHOKINASE 119 U/L (26-192); CREATININE FOR GFR 0.92 MG/DL (0.55-1.30); GLOMERULAR FILTRATION RATE > 60.0 (>60); GLUCOSE, FASTING 90 MG/DL (70-100); POTASSIUM SERUM 4.3 MEQ/L (3.5-5.1); SODIUM LEVEL 141 MEQ/L (136-145)
[2021-03-19 03:16] LABS: MB/CK RELATIVE INDEX 0.84 (< OR =4); THYROID STIMULATING HORMONE 0.379 uIU/ML (0.358-3.740); TROPONIN I < 0.02 NG/ML (< 0.10)
[2021-03-19] MEDS ORDERED: NS 1,000 ML IV ONE (06:20)
[2021-03-19] MEDS ORDERED: ONDANSETRON 4MG/2ML VIAL IV ONE (06:20)
[2021-03-19 07:26] LABS: APPEARANCE, URINE HAZY (CLEAR); BACTERIA, URINE AUTO NEGATIVE (NEGATIVE); BILIRUBIN, URINE AUTO NEGATIVE (NEGATIVE); BLOOD, URINE BLOOD NEGATIVE (NEGATIVE); COLOR, URINE YELLOW (YELLOW); GLUCOSE, URINE (UA) AUTO NEGATIVE (NEGATIVE); KETONE, URINE AUTO 1+ mg/dL (NEGATIVE); LEUKOCYTE ESTERASE, URINE AUTO NEGATIVE (NEGATIVE); MUCUS, URINE SMALL (NEGATIVE); NITRITE, URINE AUTO NEGATIVE (NEGATIVE); PROTEIN, URINE AUTO 1+ mg/dL (NEGATIVE); RBC, URINE AUTO 0 /HPF (0-3); SPECIFIC GRAVITY URINE AUTO 1.026 (1.002-1.035); SQUAMOUS EPITHELIAL CELL UR AU 6 /HPF (0-6); UROBILINOGEN, URINE AUTO 0.2 mg/dL (0.0-2.0); WBC, URINE AUTO 4 /HPF (0-3)
[2021-03-19 07:45] VITALS: BP 144/99
[2021-03-19] MEDS ORDERED: AUGM875T28 PO (08:18)
[2021-03-19 08:24] LABS: AMPHETAMINES LEVEL URINE NEGATIVE (NEGATIVE); BARBITURATES URINE NEGATIVE (NEGATIVE); BENZODIAZEPINES URINE NEGATIVE (NEGATIVE); CANNABINOIDS URINE POSITIVE (NEGATIVE); COCAINE METABOLITE URINE POSITIVE (NEGATIVE); METHADONE URINE NEGATIVE (NEGATIVE); OPIATES URINE NEGATIVE (NEGATIVE); PHENCYCLIDINE URINE NEGATIVE (NEGATIVE)
--- NOTE | 2021-03-20 08:47 | ECGEPIP ---
[facility] - ED Test Date: 2021-03-19 Pat Name: TUCKER NAPIER Department: Room: - Gender: Female Soup Mixer: NATHANIEL : 1995 Requested By: EVITA Elkins Order Number: [id number] Reading MD: Doreen Arellano Measurements Intervals [place] Rate: 70 P: 30 FL: 142 QRS: 48 QRSD: 84 T: 23 QT: 370 QTc: 399 Interpretive Statements Normal sinus rhythm decreased rate 10/30/20 Electronically Signed on 03-20-2021 8:46:40 EDT by Doreen Arellano
== END 2021-03-19 08:37 | disposition home or self-care (01) ==
LOC: M ED 01:35
DX: F19.10 Other psychoactive substance abuse, uncomplicated (principal); F12.90 Cannabis use, unspecified, uncomplicated; F14.90 Cocaine use, unspecified, uncomplicated; J01.90 Acute sinusitis, unspecified; Z21 Asymptomatic human immunodeficiency virus [HIV] infection status; F41.9 Anxiety disorder, unspecified; F33.9 Major depressive disorder, recurrent, unspecified; F17.200 Nicotine dependence, unspecified, uncomplicated; Z79.899 Other long term (current) drug therapy; Z91.018 Allergy to other foods; Z88.8 Allergy status to other drugs, medicaments and biological substances; Z87.01 Personal history of pneumonia (recurrent); Z86.19 Personal history of other infectious and parasitic diseases
CPT/HCPCS: 80048; 80307; 81001; 82550; 82553; 84443; 84484; 84703; 85025; 87086; 87798; 93005; 93041; 94760; 96374; 99285; J2405

== ENCOUNTER 2021-03-31 02:16 | Emergency (ER) | payer OTHER ==
[~2021-03-31] VITALS: Ht 162.6 cm; Wt 63.2 kg
[2021-03-31 02:16] VITALS: BP 134/83
[~2021-03-31 02:16] MED LIST changes: +QUET50TA3 PO
== END 2021-03-31 02:20 | disposition left against medical advice (07) ==
LOC: M ED 02:16
DX: Z53.21 Procedure and treatment not carried out due to patient leaving prior to being seen by health care provider (principal)

== ENCOUNTER 2021-04-01 10:57 | Emergency (ER) | payer OTHER ==
[~2021-04-01] VITALS: Ht 167.6 cm; Wt 60.5 kg
--- NOTE | 2021-04-01 11:58 | REP ---
INDICATION: cough/sob. COMPARISON: 05/07/2018. TECHNIQUE: Single portable AP view of the chest was performed. FINDINGS: There is no acute infiltrate or pulmonary edema. Lungs are clear. The heart is not significantly enlarged. The mediastinal silhouette is unremarkable. The visualized osseous structures are intact. IMPRESSION: No acute pulmonary disease. <Electronically signed by Connor Interiano > 04/01/21 1155
[2021-04-01 12:18] LABS: RSV AMPLIFICATION NEGATIVE (NEGATIVE)
[2021-04-01] MEDS ORDERED: BENZONATATE 100 MG CAP PO ONE (12:25)
[2021-04-01] MEDS ORDERED: ALBUTEROL 90 MCG/ACT 8GM HFA INHALER INH ONE (12:25)
[2021-04-01] MEDS ORDERED: TESS100C PO (13:05)
[2021-04-01] MEDS ORDERED: PROV108A INH (13:06)
[2021-04-01 13:15] VITALS: BP 112/73
== END 2021-04-01 13:23 | disposition home or self-care (01) ==
LOC: M ED 10:57
DX: J20.9 Acute bronchitis, unspecified (principal); F17.200 Nicotine dependence, unspecified, uncomplicated; Z88.8 Allergy status to other drugs, medicaments and biological substances; Z79.899 Other long term (current) drug therapy

== ENCOUNTER 2021-04-03 05:59 | Emergency (ER) | payer OTHER ==
[~2021-04-03] VITALS: Ht 162.6 cm; Wt 63.2 kg
[~2021-04-03 05:59] MED LIST changes: +PROV108A INH; +TESS100C PO
[2021-04-03] MEDS ORDERED: DEPA250T2 PO (06:14)
[2021-04-03] MEDS ORDERED: HYDR25OIN TOP (07:48)
[2021-04-03 07:55] VITALS: BP 143/89
== END 2021-04-03 08:00 | disposition home or self-care (01) ==
LOC: M ED 05:59
DX: J06.9 Acute upper respiratory infection, unspecified (principal); F31.9 Bipolar disorder, unspecified; F17.200 Nicotine dependence, unspecified, uncomplicated; Z79.899 Other long term (current) drug therapy; Z91.018 Allergy to other foods; Z88.8 Allergy status to other drugs, medicaments and biological substances

== ENCOUNTER 2021-05-13 21:04 | Emergency (ER) | payer OTHER ==
[~2021-05-13] VITALS: Ht 162.6 cm; Wt 63.0 kg
[~2021-05-13 21:04] MED LIST changes: +DEPA250T2 PO; +HYDR25OIN TOP
[2021-05-13 22:14] LABS: BASO % 0.5 % (0.0-1.0); EOS # 0.6 10^3/uL (0.0-0.5); EOS % 6.2 % (0.0-3.0); HEMATOCRIT 32.8 % (36.0-47.0); HEMOGLOBIN 10.9 g/dl (12.0-15.5); LYMPH # 2.3 10^3/uL (1.5-5.0); LYMPH % 25.7 % (24.0-44.0); MEAN CORPUSCULAR HEMOGLOBIN 30.5 pg (27.0-33.0); MEAN CORPUSCULAR HGB CONC 33.2 g/dl (32.0-36.5); MEAN CORPUSCULAR VOLUME 91.9 fl (80.0-96.0); MONO # 0.6 10^3/uL (0.0-0.8); MONO % 6.9 % (2.0-8.0); NEUTROPHILS # 5.4 10^3/uL (1.5-8.5); NEUTROPHILS % 60.4 % (36.0-66.0); PLATELET COUNT, AUTOMATED 306 10^3/uL (150-450); RED BLOOD COUNT 3.57 10^6/uL (4.00-5.40); WHITE BLOOD COUNT 8.9 10^3/uL (4.0-10.0)
[2021-05-13 22:33] LABS: BLOOD UREA NITROGEN 16 MG/DL (7-18); CALCIUM LEVEL 8.5 MG/DL (8.5-10.1); CARBON DIOXIDE LEVEL 29 MEQ/L (21-32); CHLORIDE LEVEL 104 MEQ/L (98-107); GLOMERULAR FILTRATION RATE > 60.0 (>60); GLUCOSE, FASTING 92 MG/DL (70-100); POTASSIUM SERUM 3.7 MEQ/L (3.5-5.1); SODIUM LEVEL 138 MEQ/L (136-145)
[2021-05-13] MEDS ORDERED: ONDANSETRON 4 MG ORAL DISINTEGRATING TAB PO ONE (23:05)
[2021-05-13 23:16] LABS: HCG, SERUM QUANTITATIVE 48631 MIU/ML
[2021-05-13] MEDS ORDERED: ACETAMINOPHEN 500 MG TAB PO ONE (23:20)
[2021-05-14 00:26] VITALS: BP 122/83
--- NOTE | 2021-05-14 00:28 | REPVR ---
PROCEDURE INFORMATION: Exam: US First Trimester, Transabdominal Exam date and time: 05/13/2021 11:20 PM Age: 26 years old Clinical indication: Lmp or gestational age (in weeks): 6w 2d; Other: Vaginal bleeding; ; Additional info: Vag bleeding, unknown wks preg TECHNIQUE: Imaging protocol: Real-time transabdominal obstetrical ultrasound of the maternal pelvis and a first trimester , less than 14 weeks 0 days, with image documentation. COMPARISON: No relevant prior studies available. FINDINGS: Gestation: Gestational sac within the uterus with pole and yolk sac. Embryonic/ heart rate: heartbeat of 117 bpm. Extra-embryonic membranes/Placenta: Unremarkable. No subchorionic bleed. Amniotic fluid: Amniotic fluid is normal for gestational age. BIOMETRY: [place]-Rump length: [place]-rump length of 5.4 mm suggesting an age of 6 weeks 3 days. The EDC is 01/03/2022. MATERNAL: Uterus: Unremarkable. Cervix: Unremarkable. Right adnexa: The right ovary measures 1.9 x 2.2 x 2.1 cm and demonstrates color flow. Left adnexa: The left ovary measures 3.0 x 2.0 x 2.4 cm and demonstrates color flow. Intraperitoneal space: No intraperitoneal free fluid. IMPRESSION: Early single live intrauterine gestation with an estimated age of 6 weeks 3 days. The EDC is 01/03/2022. Electronically signed by: Vipin Kasper On 05/14/2021 00:27:49 AM
[2021-05-14] MEDS ORDERED: METOCLOPRAMIDE 10 MG TAB PO ONE (00:30)
[2021-05-14] MEDS ORDERED: ONDA4TAB6 PO (00:48)
== END 2021-05-14 01:21 | disposition home or self-care (01) ==
LOC: M ED 21:04
DX: O20.8 Other hemorrhage in early pregnancy (principal); Z3A.01 Less than 8 weeks gestation of pregnancy; R51.9 Headache, unspecified; Z87.01 Personal history of pneumonia (recurrent); Z86.19 Personal history of other infectious and parasitic diseases; F17.200 Nicotine dependence, unspecified, uncomplicated; Z79.899 Other long term (current) drug therapy; Z91.018 Allergy to other foods; Z88.8 Allergy status to other drugs, medicaments and biological substances
CPT/HCPCS: 76801; 80048; 84702; 85025; 86850; 86900; 86901; 99283; Q0162

== ENCOUNTER 2022-01-08 11:25 | Emergency (ER) | payer OTHER ==
[~2022-01-08] VITALS: Ht 162.6 cm; Wt 61.4 kg
[~2022-01-08 11:25] MED LIST changes: -CITA40TA4; +CITA40TA7; -D31000TA2; -FLUC150T; +FLUC150T9; +ONDA4TAB6 PO; -QUET50TA3 PO; +QUET50TA4 PO; +VITA100093
[2022-01-08 11:26] VITALS: BP 120/79
[2022-01-08] MEDS ORDERED: ALPR0.5T3 (11:34)
[2022-01-08] MEDS ORDERED: DEXTROAMP-AMPHETAMIN (11:34)
[2022-01-08] MEDS ORDERED: CITA40TA7 (11:34)
== END 2022-01-08 13:26 | disposition home or self-care (01) ==
LOC: M ED 11:25
DX: R05.9 Cough, unspecified (principal); Z20.822 Contact with and (suspected) exposure to COVID-19; F17.200 Nicotine dependence, unspecified, uncomplicated; G43.909 Migraine, unspecified, not intractable, without status migrainosus; Z87.01 Personal history of pneumonia (recurrent); Z86.19 Personal history of other infectious and parasitic diseases; F41.9 Anxiety disorder, unspecified; F32.9 Major depressive disorder, single episode, unspecified; F60.3 Borderline personality disorder; Z79.899 Other long term (current) drug therapy; Z88.8 Allergy status to other drugs, medicaments and biological substances; Z91.018 Allergy to other foods

== ENCOUNTER 2022-01-13 08:33 | Emergency (ER) | payer OTHER ==
[~2022-01-13] VITALS: Ht 162.6 cm; Wt 61.4 kg
[2022-01-13 08:33] VITALS: BP 122/87
[~2022-01-13 08:33] MED LIST changes: +ALPR0.5T3; +DEXTROAMP-AMPHETAMIN
[2022-01-13] MEDS ORDERED: IPRATROPIUM 0.5MG/ALBUTEROL 2.5MG INH SOL UD 3ML (DUONEB) NEB ONE (10:35)
[2022-01-13 10:48] LABS: RSV AMPLIFICATION NEGATIVE (NEGATIVE)
[2022-01-13 11:18] LABS: BASO % 0.4 % (0.0-1.0); EOS # 0.3 10^3/uL (0.0-0.5); EOS % 6.2 % (0.0-3.0); HEMATOCRIT 36.9 % (36.0-47.0); HEMOGLOBIN 12.2 g/dl (12.0-15.5); LYMPH # 1.3 10^3/uL (1.5-5.0); LYMPH % 25.5 % (24.0-44.0); MEAN CORPUSCULAR HEMOGLOBIN 29.9 pg (27.0-33.0); MEAN CORPUSCULAR HGB CONC 33.1 g/dl (32.0-36.5); MEAN CORPUSCULAR VOLUME 90.4 fl (80.0-96.0); MONO # 0.7 10^3/uL (0.0-0.8); MONO % 13.9 % (2.0-8.0); NEUTROPHILS # 2.8 10^3/uL (1.5-8.5); NEUTROPHILS % 53.6 % (36.0-66.0); PLATELET COUNT, AUTOMATED 242 10^3/uL (150-450); RED BLOOD COUNT 4.08 10^6/uL (4.00-5.40); WHITE BLOOD COUNT 5.2 10^3/uL (4.0-10.0)
[2022-01-13 11:36] LABS: BLOOD UREA NITROGEN 15 MG/DL (7-18); CALCIUM LEVEL 8.8 MG/DL (8.5-10.1); CARBON DIOXIDE LEVEL 27 MEQ/L (21-32); CHLORIDE LEVEL 107 MEQ/L (98-107); CREATININE FOR GFR 0.96 MG/DL (0.55-1.30); GLOMERULAR FILTRATION RATE > 60.0 (>60); GLUCOSE, FASTING 83 MG/DL (70-100); POTASSIUM SERUM 3.4 MEQ/L (3.5-5.1); SODIUM LEVEL 138 MEQ/L (136-145)
[2022-01-13] MEDS ORDERED: POTASSIUM CHLORIDE 10MEQ SR TABLET PO ONE (11:40)
[2022-01-13] MEDS ORDERED: PROAAER10 INH (12:15)
== END 2022-01-13 12:37 | disposition home or self-care (01) ==
LOC: M ED 08:33
DX: R06.02 Shortness of breath (principal); R05.9 Cough, unspecified; Z20.9 Contact with and (suspected) exposure to unspecified communicable disease; I10 Essential (primary) hypertension; F31.89 Other bipolar disorder; F90.9 Attention-deficit hyperactivity disorder, unspecified type; F17.200 Nicotine dependence, unspecified, uncomplicated; Z79.899 Other long term (current) drug therapy; Z91.018 Allergy to other foods; Z88.8 Allergy status to other drugs, medicaments and biological substances

== ENCOUNTER → 2022-02-09 | Outpatient (CLI) | payer OTHER | LOC: M RAD 17:23 | PROVIDERS: ATTEND Otolaryngology | DX: J32.9 Chronic sinusitis, unspecified (principal) ==

== ENCOUNTER 2022-04-12 19:42 | Emergency (ER) | payer OTHER, BC ==
[~2022-04-12] VITALS: Ht 162.6 cm; Wt 64.1 kg
[2022-04-12 19:42] VITALS: BP 122/85
[2022-04-13] MEDS ORDERED: ADDE10CA3 PO (13:30)
[2022-04-13] MEDS ORDERED: PRED20TA PO (14:53)
[2022-04-13] MEDS ORDERED: METH-1165 PO (14:53)
== END 2022-04-13 00:10 | disposition left against medical advice (07) ==
LOC: M ED 19:42
DX: Z53.21 Procedure and treatment not carried out due to patient leaving prior to being seen by health care provider (principal)

== ENCOUNTER 2022-04-13 13:16 | Emergency (ER) | payer BC, OTHER ==
[~2022-04-13] VITALS: Ht 162.6 cm; Wt 63.2 kg
[2022-04-13 13:19] VITALS: BP 129/73
[2022-04-13] MEDS ORDERED: ADDE10CA3 PO (13:30)
[2022-04-13] MEDS ORDERED: PRED20TA PO (14:53)
[2022-04-13] MEDS ORDERED: METH-1165 PO (14:53)
== END 2022-04-13 15:08 | disposition home or self-care (01) ==
LOC: M ED 13:16
DX: M54.50 Low back pain, unspecified (principal); M54.2 Cervicalgia; G43.909 Migraine, unspecified, not intractable, without status migrainosus; F60.3 Borderline personality disorder; F41.9 Anxiety disorder, unspecified; F32.A Depression, unspecified; F17.200 Nicotine dependence, unspecified, uncomplicated; Z88.8 Allergy status to other drugs, medicaments and biological substances; Z91.018 Allergy to other foods; Z79.899 Other long term (current) drug therapy

== ENCOUNTER → 2022-07-25 | Outpatient (CLI) | payer OTHER ==
[~2022-07-25] MED LIST changes: +ADDE10CA3 PO; +ALBU6.7H6 INH; +ETON68IM SC; +METH-1165 PO; -NEXP1IMP SC; +PRED20TA PO; -PROV108A INH
== END ==
LOC: M WUC 11:31
PROVIDERS: ATTEND Nurse Practitioner Family
DX: Z01.818 Encounter for other preprocedural examination (principal)